=== PATIENT | male | born 1935 | race Caucasian/White ===

== ENCOUNTER → 2016-03-20 | Outpatient (CLI) | payer OTHER | LOC: MMPC 11:11 | PROVIDERS: ATTEND Surgery | DX: Z86.010 Personal history of colon polyps (principal); Z83.71 Family history of colonic polyps | CPT/HCPCS: 99202; G0463 ==

== ENCOUNTER → 2016-04-24 | Outpatient (CLI) | payer OTHER ==
--- NOTE | 2016-04-24 15:52 | DI ---
AP PELVIS and RIGHT HIP, 04/24/2016 1:12 PM: Clinical History: Right hip pain. Previous Exam: None at this facility. There is no soft tissue abnormality. The bony structures of the pelvis are normal. 2 views of the rig ht hip show asphericity of the femoral head with a dysplastic "bump". The left femoral head shows the same pattern. There is narrowing of the superior and inferior portions of the right hip joint space. Bony densities are present just superior to the right and left greater trochanters. These bony densi ties may represent heterotopic bone formation in the area of the gluteus medius and gluteus minimus t endons secondary to prior trauma. Readin. 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 The same pattern in the femoral head is noted on the left side. 2. There are bony densities superior to each greater trochanter and these densities may be related t o previous trauma. 3. The AP pelvis view is unremarkable.
== END ==
LOC: MOB RAD 13:14
PROVIDERS: ATTEND Physician Assistant
DX: M25.551 Pain in right hip (principal); M16.11 Unilateral primary osteoarthritis, right hip
CPT/HCPCS: 73502

== ENCOUNTER → 2016-05-01 | Outpatient (CLI) | payer OTHER | LOC: MMPC 11:11 | PROVIDERS: ATTEND Surgery | DX: K43.2 Incisional hernia without obstruction or gangrene (principal) | CPT/HCPCS: 99212; G0463 ==

== ENCOUNTER → 2016-08-08 | Outpatient (CLI) | payer OTHER ==
--- NOTE | 2016-08-10 18:07 | DI ---
XR WRIST COMPLETE MIN 3VW,08/08/2016 12:34 PM: Clinical History: Right wrist pain Previous Exam: None at this facility. Findings: 3 views of the right wrist are obtained, and demonstrate anatomic alignment without fractures. Diffus e degenerative changes are noted. Peripheral vascular calcifications are seen. There is some fragmentation of the right ulnar styloid. Degenerative changes are noted involving the first carpometacarpal joint. There is no acute fracture identified. Impression: 1. Diffuse degenerative changes of the right wrist without acute fractures. If pain persists or worsens, recommend followup imaging in 7-10 days to document resolution..
== END ==
LOC: MOB RAD 12:36
PROVIDERS: ATTEND Physician Assistant
DX: M25.531 Pain in right wrist (principal); R20.0 Anesthesia of skin; M19.031 Primary osteoarthritis, right wrist
CPT/HCPCS: 73110; 99213; G0463; L3908

== ENCOUNTER → 2016-08-25 | Outpatient (CLI) | payer OTHER | LOC: MMPC 10:00 | PROVIDERS: ATTEND Orthopaedic Surgery | DX: G56.01 Carpal tunnel syndrome, right upper limb (principal) | CPT/HCPCS: 99214; G0463 ==

== ENCOUNTER 2016-12-25 15:14 | Inpatient (IN) ==
[2016-12-25] MEDS ORDERED: IPRATROPIUM/ALBUTEROL SULFATE 3 ML NEB NEB ONE (15:27)
[2016-12-25] MEDS ORDERED: KETOROLAC 15 MG/1 ML VIAL IVP ONE (15:27)
[2016-12-25] MEDS ORDERED: Sodium Chloride 0.9% 1,000 ML PRIMARY IV ONE (15:27)
--- NOTE | 2016-12-25 15:30 | PDOC ---
Altered Mental Status HPI - General Chief Complaint: Altered Mental Status Stated Complaint: ams Date Seen by Provider: 12/25/16 Time Seen by Provider: 15:29 Source: POSITIVE: Patient Exam Limitations: POSITIVE: No limitations Nurse's Notes Reviewed & Considered: Yes - History of Present Illness Initial Comments: This is a pleasant 81-year-old male with altered mental status. Patient fell approximately a week ago resulting in rib fractures left ribs numbers 4 through 10. His fall occurred while working F home. Since that time he's had multiple other falls in now is confused, believing he is in the [facility], and is talking to nonexistent dog. Family states he's had no fevers, normal urine output, he has been coughing up phlegm. Review of systems per patient is unavailable because of his altered mental status. Timing: REPORTS: Unknown Duration: Unknown Severity: Severe Quality: DENIES: Aching, Burning, Cramping, Dullness, Fullness, "Pain", Sharpness, Stabbing, Throbbing, Tenderness, Itching, Pressure, Other Character of AMS: REPORTS: Disoriented Context: REPORTS: Trauma New Medications (if yes, list): No Patient Normals: REPORTS: Confused, Disoriented to Time, Disoriented to Place, Walks Without Assist Associated Symptoms: REPORTS: Multiple Falls, Dizziness Similar Symptoms Previously: No Recent Care Received: REPORTS: Recently Seen, Treated by MD Any Prior Injuries Related to Current Complaint?: No - Patient Home Medications Home Medications: Home Medications Aspirin 1 tab PO DAILY tab 11/08/15 Potassium 1 tab PO QD tab 11/08/15 Sitagliptin Phosphate [Januvia] 1 tab PO DAILY #90 tab 09/12/16 doxycycline hyclate 50 mg capsule 50 mg PO BID #60 cap 11/13/16 lisinopril 10 mg tablet 10 mg PO QDAY #90 tab 11/13/16 pravastatin 40 mg tablet 40 mg PO DAILY #90 tab 11/13/16 tamsulosin 0.4 mg capsule 0.4 mg PO DAILY #90 tab-cap 11/13/16 glucosamine [id number] yesica 1,500 mg-400 unit-100 mg tablet 1 tab PO QDAY tab 12/04/16 magnesium 200 mg tablet 200 mg PO QD tab 12/04/16 oxybutynin chloride ER 5 mg tablet,extended release 24 hr 5 mg PO QDAY #30 tab 12/04/16 polyethylene glycol 3350 17 gram/dose oral powder 17 g PO QDAY #765 g 12/04/16 levothyroxine 88 mcg tablet 88 mcg PO DAILY #90 tab 12/11/16 HYDROcodone/APAP 10/325 Tab [[place] 10/325 Tab] 1 tab PO Q6H PRN #20 tab - Patient Allergies Allergies/Adverse Reactions: Allergies 3 Allergy/AdvReac Type Severity Reaction Status Date / Time codeine Allergy Severe SYNCOPAL Verified 12/25/16 21:18 EPISODE Past Medical History - heen HEENT History: Denies History Cardiovascular History: Hypertension, Hyperlipidemia Respiratory History: Denies History Gastrointestinal History: Denies History Genitourinary History: Other (please comment) Additional Genitourinary History: BPH Endocrine History: Hypothyroidism Musculoskeletal History: Back Pain, Joint Pain Neurological History: Denies History Blood Disorders: Denies History Psychiatric History: Denies History History of Sexually Transmitted Diseases: No Cancer History: Denies History History of MDRO: No History of Other Communicable Diseases: No Alcohol Use: Rarely In the Past 12 Months, Have Used or Abuse Any Substance: None Previous Surgical History: No Type / Date of Surgery: INGUINAL HERNIA REPAIR, APPENDECTOMY Anesthesia Reactions: No Malignant Hyperthermia: No Significant Family History: No pertinent family hx ROS - Limitations ROS Limitations: Mental Impairment (No further review of systems unavailable because of this patient's altered mental status.) Altered Mental Physical Exam - General Appearance General Appearance: POSITIVE: Alert, Cooperative, No Acute Distress, No Evidence of Trauma - HEENT HEENT: POSITIVE: Head Inspection Nml, Eyes Inspection Nml, Ears Inspection Nml, Nose Inspection Nml, Oral/Dental Inspect. Nml, Pharynx Inspect. Nml, PERRL, EOMI - Pupil Size Pupil Size: 4 mm: Bilateral - Neuro/Psych Neurological: POSITIVE: Confusion Cranial Nerves: POSITIVE: Normal As Tested, No Evidence of Acute CVA Cerebellar: POSITIVE: Normal As Tested Peripheral Exam: POSITIVE: No Motor Deficits, No Sensory Deficits, Reflexes Normal Reflexes: Patellar (R): 4+, Patellar (L): 4+, Radial (R): 4+, Radial (L): 4+ - Neck Neck: POSITIVE: Supple, Non Tender - Respiratory Respiratory: POSITIVE: No Respiratory Distress, Breath Sounds Normal - Cardiovascular CVS: POSITIVE: Regular Rate and Rhythm, Heart Sounds Normal - Abdomen Abdomen: Soft: (All Quadrants), Normal Bowel Sounds: (All Quadrants), Denies Tenderness: (All Quadrants), No Splenomegaly: (All Quadrants), No Hepatomegaly: (All Quadrants), No Guarding: (All Quadrants), No Rebound: (All Quadrants), No Palpable Pulse: (All Quadrants), No Palpabale Mass: (All Quadrants), No Distention: (All Quadrants), No Rigidity: (All Quadrants) - Skin Skin: POSITIVE: Normal for Race, No Rash, Warm, Dry - Extremities Extremity: Non-Tender: (All Extremities), Normal ROM: (All Extremities), Normal Inspection: (All Extremities), Pelvis Stable: (All Extremities) Altered Mental Status - Results Reviewed By Me Xrays/CTs/US Reviewed: Yes Discussed with Radiologist: Yes Lab Results Reviewed by Me: Yes CBC and BMP: 12/25/16 15:57 12/25/16 15:57 - Patient's Progress Pain Medication Addressed: POSITIVE: Yes Status: POSITIVE: Improved MDM / ED Course: Patient was evaluated, an IV started, blood drawn and sent to the lab for studies, radiographic examinations were obtained. Findings: CT scan of his head shows bland infarct in left frontal lobe. INR is normal. CBC is unremarkable, comprehensive metabolic panel is unremarkable. Urinalysis is pending. Assessment: CVA, bland infarct left frontal lobe. Plan: Admission plan for MRI tomorrow. Antibiotics Given: No - Consult Consult (If Yes, Name of Consulting MD & Time Called): Yes (Dr. Mathews: 18:51) Consulting MD will see pt:: POSITIVE: [facility] [place] Admit Counseled: POSITIVE: Patient, Family, RE: Lab Results, RE: Radiology Results, RE : DX - CAP/CVA/Syncope CAP: POSITIVE: Blood Cultures, Chest X-ray, Other (CT of the head) Patient Care Time - Estimated PCT Patient Care Time (In Minutes): 45 Vital Signs - Recent Vital Signs Vital Signs: Vital Signs (Last 8 hours) Temp Pulse Resp BP Pulse Ox 12/25/16 15:14 98.7 F 77 16 142/78 85 - VS Reviewed Vital Signs Reviewed: Yes Discharge Clinical Impression: Stroke Discharge Disposition: Admit to Inpatient Condition: Stable Date Decision to Admit to Inpatient: 12/25/16 Time Decision to Admit to Inpatient: 18:53
[2016-12-25 16:11] LABS: Hematocrit [HCT] 42.1 % (42.0-52.0); Hemoglobin [HGB] 13.5 g/dL (14.0-18.0); MEAN CORPUSCULAR HEMOGLOBIN 29.9 PG (27-31); MEAN CORPUSCULAR HGB CONC 32.1 g/dL (33-37); MEAN CORPUSCULAR VOLUME 93.1 FL (80-90); MEAN PLATELET VOLUME 10.4 FL (7.4-12.2); RED BLOOD COUNT 4.52 10^6/uL (4.70-6.10)
[2016-12-25 16:16] LABS: VENOUS PH 7.4 (7.32-7.42)
[2016-12-25 16:22] LABS: BLOOD UREA NITROGEN 24 mg/dL (7-22); BUN/CREATININE RATIO 21.81 (6-20); SERUM ALBUMIN 3.7 g/dL (3.5-4.8)
[2016-12-25 16:28] LABS: PLATELET MORPHOLOGY COMMENT NORMAL MORPHOLOGY (NORM); RBC MORPHOLOGY COMMENT NORMAL MORPHOLOGY (NORM); WBC MORPHOLOGY COMMENT NORMAL MORPHOLOGY (NORM)
[2016-12-25 16:29] LABS: BAND NEUTROPHILS % 0 % (0-10); BASOPHILS % (MANUAL) 1 % (0-1); EOSINOPHILS % (MANUAL) 0 % (0-8); MONOCYTES % (MANUAL) 8 % (0-12); NEUTROPHILS % (MANUAL) 73 % (50-80)
--- NOTE | 2016-12-25 18:05 | DI ---
CT HEAD SCAN WITHOUT IV CONTRAST, 12/25/2016 4:59 PM : Clinical History: Acute mental status change. Previous Exam: None at this facility. Scans are obtained from the foramen magnum to the vertex without IV contrast. None fourth ventricle The third and lateral ventricles are moderately dilated but are otherwise bjorn l. There is no evidence of an acute hemorrhagic infarct. There is a low-density lesion measuring abou t 20 mm in diameter in the left frontal lobe without evidence of mass effect. The gyral pattern in th is location is normal in this low density lesion most likely represents an acute or subacute bland in farct. There are multiple punctate periventricular white matter lucencies bilaterally that extend int o the watershed territory, consistent with small vessel ischemic disease. This amount of ischemic dis ease is appropriate for the patient's age. There is moderately severe cerebellar and severe cerebral atrophy. There are no extracerebral mantles or shift of the midline structures. Bone window evaluatio n is normal. The paranasal sinuses are normal. READIN. There is a 20 mm focus of low density located in the left frontal lobe without mass effect or manav dence of localized cortical atrophy. This low density lesion would be consistent with an acute or sub acute bland infarct. 2. Small vessel ischemic disease. 3. Moderately severe cerebellar and severe cerebral atrophy.
--- NOTE | 2016-12-25 18:10 | DI ---
PA /LATERAL CHEST X-RAY, 12/25/2016 3:27 PM : Clinical History: Shortness of breath. Cough. Broken ribs. Previous Exam: 12/20/2016. There are fractures of the left fourth through 10th ribs posterolaterally. Heart size is normal. Ther e is no pneumothorax but there is a new left pleural effusion with left lower lobe atelectasis. Media stinal structures are normal. There are no pulmonary nodules. Readin. Fractures of the left fourth through 10th ribs posterolaterally. There is no pneumothorax. 2. Interval development of a small left pleural effusion. There is chronic blunting of the right cos tophrenic angle.
[2016-12-25] MEDS ORDERED: CALCIUM CARBONATE 500 MG (TUMS) CHEWABLE TABLET PO PRN (20:46)
[2016-12-25] MEDS ORDERED: LIDOCAINE W/ SODIUM BICARB 0.5 ML SYR SUBD PRN (20:46)
[2016-12-25] MEDS ORDERED: ONDANSETRON 4 MG/2 ML VIAL IVP PRN (20:46)
[2016-12-25] MEDS ORDERED: DOCUSATE 100 MG CAPSULE PO PRN (20:46)
[2016-12-25] MEDS ORDERED: KETOROLAC 15 MG/1 ML VIAL IVP PRN (20:46)
[2016-12-25] MEDS ORDERED: ACETAMINOPHEN 325 MG TABLET PO PRN (20:46)
[2016-12-25] MEDS ORDERED: NORMAL SALINE 10 ML SYRINGE FLUSH IVP PRN (20:46)
--- NOTE | 2016-12-25 23:33 | PDOC ---
HPI - History of Present Illness Date and Time of Service: 12/25/2016, 2330 Chief Complaint: Altered mental status History of Present Illness: This very pleasant 81-year-old male who has BPH, recent rib fractures from a fall, mechanical in relation to taking care of his scalp, who comes in accompanied by his family with complaints of altered mental status. The history had to be obtained from the patient's [id number], son, and daughter. Apparently, the patient was very disoriented today, was having some garbled speech at times, but it's difficult to tell if he has lateralizing weakness as he's had long-standing right arm weakness in relation to her shoulder problems. The patient seemed to be able to eat okay and did not have any coughing or anything consistent with aspiration. No fevers, chills, nausea or vomiting. Apparently, when the patient had a fall on the fourth, he broke several ribs on the left side and there was concern that maybe the hydrocodone was causing pain. Workup tonight revealed a possible stroke although the age of the stroke is not known. This was on CT scan. It is also not known if he had a concussion, but apparently he laid on the ground for close to a few hours after the incident with his fall when he got knocked over and his ribs were fractured. He has been on hydrocodone, recently started on oxybutynin, and is also on a statin. The family states that he is not normally confused. The patient currently denies any pain. Chest x-ray workup did not reveal any pneumonia although he was requiring oxygen at around 2 L per nasal cannula. He did have what appeared to be a small left-sided pleural effusion. He has not had any confusion like this before. Outside of bringing him in today for evaluation I'm not aware of any interventions that were tried. Past Medical History Medical History: 1. BPH. 2. Hypercholesterolemia. 3. Hypertension. 4. Diabetes most 2. 5. Hypothyroidism. 6. History of colon polyps. 7. Shoulder problems, right side worse than left Surgical History: 1. History of appendectomy. 2. Hernia repair. 3. History of colonoscopy. Pertinent Family History: Significant for diabetes in siblings and parents. Past Social History: Smoked remotely over 40 years ago. Does not drink alcohol. [place] Has children that are described as healthy. Tobacco Use: Former Smoker In the Past 12 Months, Have Used or Abuse Any of the Following Substance: None Alcohol Use: None Medication / Allergies Home Medications: Home Medications Medication Instructions Recorded Confirmed Type Aspirin 1 tab PO DAILY tab 11/08/15 12/25/16 History Potassium 1 tab PO QD tab 11/08/15 12/25/16 History Sitagliptin Phosphate [Januvia] 1 tab PO DAILY #90 tab 09/12/16 12/25/16 Rx doxycycline hyclate 50 mg capsule 50 mg PO BID #60 cap 11/13/16 12/25/16 Rx lisinopril 10 mg tablet 10 mg PO QDAY #90 tab 11/13/16 12/25/16 Rx pravastatin 40 mg tablet 40 mg PO DAILY #90 tab 11/13/16 12/25/16 Rx tamsulosin 0.4 mg capsule 0.4 mg PO DAILY #90 tab-cap 11/13/16 12/25/16 Rx glucosamine [id number] 1 tab PO QDAY tab 12/04/16 12/25/16 History yesica 1,500 mg-400 unit-100 mg tablet magnesium 200 mg tablet 200 mg PO QD tab 12/04/16 12/25/16 History oxybutynin chloride ER 5 mg 5 mg PO QDAY #30 tab 12/04/16 12/25/16 Rx tablet,extended release 24 hr polyethylene glycol 3350 17 17 g PO QDAY #765 g 12/04/16 12/25/16 Rx gram/dose oral powder levothyroxine 88 mcg tablet 88 mcg PO DAILY #90 tab 12/11/16 12/25/16 Rx HYDROcodone/APAP 10/325 Tab 1 tab PO Q6H PRN #20 tab 12/20/16 12/25/16 Rx [[place] 10/325 Tab] Allergies/Adverse Reactions: Allergies 3 Allergy/AdvReac Type Severity Reaction Status Date / Time codeine Allergy Severe SYNCOPAL Verified 12/25/16 21:18 EPISODE Review of Systems - Review of Systems ROS Unobtainable: Due to Mental Status (I cannot obtain a review systems from this patient due to his altered mental status, confusion.) Exam - Vitals Vital Signs: Vital Signs Temperature 97.6 F Temperature Source Oral Pulse Rate [Pulse Oximeter 66 Right] Pulse Rate 67 Respiratory Rate 22 Blood Pressure [Left Arm] 152/70 Blood Pressure 142/78 Pulse Ox 94 Oxygen Flow Rate 2 Oxygen Delivery Method Nasal Cannula Height 6 ft Weight 168 lb 6 oz - General General Appearance: No Acute Distress, Cooperative (Patient followed basic commands. Was able to breathe deeply on command for example.) - Head Head Exam: Normal Inspection, Normocephalic, Atraumatic - Eye Eye Exam: POSITIVE: No Scleral Icterus - ENT ENT Exam: POSITIVE: Mucous Membranes Moist - Neck Neck Exam: No Tenderness, No Lymphadenopathy, No Thyromegaly, JVP is Raised - Respiratory Respiratory Exam: POSITIVE: Breathing Non Labored, Decreased Breath Sounds (The left base) - Cardiovascular Cardiovascular Exam: POSITIVE: RRR, No Murmur, No Clicks, No Gallops, No Rubs, JVD - GI/Abdominal GI/Abdominal Exam: POSITIVE: Normal Bowel Sounds, Non Tender, Non Distended, Soft - Rectal Rectal Exam: POSITIVE: Deferred - External Exam: POSITIVE: Deferred Exam: POSITIVE: Deferred - Extremities Extremities Exam: POSITIVE: No Clubbing Present, No Edema Present, No Cyanosis Present - Neurological Neurological Exam: POSITIVE: Alert, Speech Intact / Clear (At times, the patient had clear and intact speech. At other times it was more gibberish. He has decreased movement of his right upper extremity and weakness of the right upper extremity that the family states is baseline for him.), Altered (Somewhat confused.) - Psychiatric Psychiatric Exam: POSITIVE: Normal Affect, Normal Mood Results - Labs CBC and BMP: 12/25/16 15:57 12/25/16 15:57 Additional Lab Results: Laboratory Results 12/25/16 12/25/16 12/25/16 Range/Units 15:54 15:57 15:57 WBC 9.02 (4.8-10.8) 10^3/uL RBC 4.52 L (4.70-6.10) 10^6/uL Hgb 13.5 L (14.0-18.0) g/dL Hct 42.1 (42.0-52.0) % MCV 93.1 H (80-90) FL MCH 29.9 (27-31) PG MCHC 32.1 L (33-37) g/dL RDW Std Deviation 43.0 (39-50) fL RDW Coeff of Alicia 13.0 (11.5-14.5) % Plt Count 176 (140-350) 10*3/uL MPV 10.4 (7.4-12.2) FL Neutrophils % (Manual) 73 (50-80) % Band Neutrophils % 0 (0-10) % Lymphocytes % (Manual) 18 (10-50) % Monocytes % (Manual) 8 (0-12) % Eosinophils % (Manual) 0 (0-8) % Basophils % (Manual) 1 (0-1) % Metamyelocytes % Not Reportable Myelocytes % Not Reportable Promyelocytes % Not Reportable Blast Cells Not Reportable WBC Morphology Comment Normal morphology (NORM) Plt Morphology Comment Normal morphology (NORM) RBC Morph Comment Normal morphology (NORM) PT (9.7-11.4) secs INR (0.00-5.90) N/A VBG pH 7.40 (7.32-7.42) VBG pCO2 42 L (45-55) mmHg VBG HCO3 26 (22-26) mmol/L VBG Base Excess 1 (-2-2) MMOL/L Sodium 138 (135-145) meq/L Potassium 4.1 (3.8-5.2) meq/L Chloride 103 (98-112) meq/L Carbon Dioxide 28 (23-33) meq/L Anion Gap 7 (5-20) BUN 24 H (7-22) mg/dL Creatinine 1.1 (0.70-1.50) mg/dL BUN/Creatinine Ratio 21.81 H (6-20) Glucose 135 H (78-110) mg/dL Calculated Osmolality 291.0 (267-292) mOsm/kg Lactic Acid 0.8 (0.70-2.10) MMOL/L Calcium 9.4 (8.7-10.7) mg/dL Total Bilirubin 1.1 (0.3-1.2) mg/dL AST 24 (21-57) IU/L ALT 34 (21-72) IU/L Alkaline Phosphatase 66 (38-126) IU/L Total Protein 6.5 (6.1-8.0) g/dL Albumin 3.7 (3.5-4.8) g/dL Globulin 2.8 (2.50-4.10) g/dL Albumin/Globulin Ratio 1.30 (1.3-2.0) mg/g 12/25/16 Range/Units 17:15 WBC (4.8-10.8) 10^3/uL RBC (4.70-6.10) 10^6/uL Hgb (14.0-18.0) g/dL Hct (42.0-52.0) % MCV (80-90) FL MCH (27-31) PG MCHC (33-37) g/dL RDW Std Deviation (39-50) fL RDW Coeff of Alicia (11.5-14.5) % Plt Count (140-350) 10*3/uL MPV (7.4-12.2) FL Neutrophils % (Manual) (50-80) % Band Neutrophils % (0-10) % Lymphocytes % (Manual) (10-50) % Monocytes % (Manual) (0-12) % Eosinophils % (Manual) (0-8) % Basophils % (Manual) (0-1) % Metamyelocytes % Myelocytes % Promyelocytes % Blast Cells WBC Morphology Comment (NORM) Plt Morphology Comment (NORM) RBC Morph Comment (NORM) PT 10.5 (9.7-11.4) secs INR 0.99 (0.00-5.90) N/A VBG pH (7.32-7.42) VBG pCO2 (45-55) mmHg VBG HCO3 (22-26) mmol/L VBG Base Excess (-2-2) MMOL/L Sodium (135-145) meq/L Potassium (3.8-5.2) meq/L Chloride (98-112) meq/L Carbon Dioxide (23-33) meq/L Anion Gap (5-20) BUN (7-22) mg/dL Creatinine (0.70-1.50) mg/dL BUN/Creatinine Ratio (6-20) Glucose (78-110) mg/dL Calculated Osmolality (267-292) mOsm/kg Lactic Acid (0.70-2.10) MMOL/L Calcium (8.7-10.7) mg/dL Total Bilirubin (0.3-1.2) mg/dL AST (21-57) IU/L ALT (21-72) IU/L Alkaline Phosphatase (38-126) IU/L Total Protein (6.1-8.0) g/dL Albumin (3.5-4.8) g/dL Globulin (2.50-4.10) g/dL Albumin/Globulin Ratio (1.3-2.0) mg/g - EKG Data -: EKG Interpreted by Me (I have ordered an EKG.) - Imaging Status: Image Reviewed by Me (Head CT scan appears negative for bleed. The radiologist felt it may show a punctate lesion that might be consistent with stroke. Chest x-ray appears negative for pneumonia, but there is a small pleural effusion on the left and multiple rib fractures on the left.) Assessment and Plan - Patient Problems (1) Altered mental status Current Visit: Yes Status: Acute Code(s): R41.82 - Altered mental status, unspecified Qualifiers: Altered mental status type: disorientation Qualified Code(s): R41.0 - Disorientation, unspecified (2) Rib fractures Current Visit: Yes Status: Acute Code(s): S22.39XA - Fracture of one rib, unspecified side, initial encounter for closed fracture Qualifiers: Encounter type: subsequent encounter Rib fracture type: multiple ribs Fracture type: closed Laterality: left Fracture healing: with routine healing Qualified Code(s): S22.42XD - Multiple fractures of ribs, left side, subsequent encounter for fracture with routine healing (3) Stroke Current Visit: Yes Status: Suspected Code(s): I63.9 - Cerebral infarction, unspecified Qualifiers: CVA mechanism: thrombosis Precerebral and cerebral artery: unspecified cerebral artery Qualified Code(s): I63.30 - Cerebral infarction due to thrombosis of unspecified cerebral artery (4) Benign prostatic hyperplasia Current Visit: Yes Status: Chronic Qualifiers: Lower urinary tract symptom presence: symptoms present Lower urinary tract symptom detail: unspecified Qualified Code(s): N40.1 - Benign prostatic hyperplasia with lower urinary tract symptoms; N40.1 - Benign prostatic hyperplasia with lower urinary tract symptoms (5) Type 2 diabetes mellitus Current Visit: Yes Status: Chronic Qualifiers: Diabetes mellitus complication status: without complication Diabetes mellitus senior care insulin use: without superintendent [employer] use Qualified Code(s): E11.9 - Type 2 diabetes mellitus without complications (6) Hypothyroidism (acquired) Current Visit: Yes Status: Chronic Onset Date: 06/28/12 Code(s): E03.9 - Hypothyroidism, unspecified (7) Hyperlipidemia Current Visit: Yes Status: Chronic Onset Date: 06/28/12 Code(s): E78.5 - Hyperlipidemia, unspecified Qualifiers: Hyperlipidemia type: unspecified Qualified Code(s): E78.5 - Hyperlipidemia , unspecified (8) Benign hypertension Current Visit: Yes Status: Chronic Onset Date: 06/28/12 Code(s): I10 - Essential (primary) hypertension (9) Postconcussive syndrome Current Visit: Yes Status: Suspected Code(s): F07.81 - Postconcussional syndrome - Assessment / Plan Additional Assessment/Plan Details: Admit the patient. We'll get PT and OT involved with recent falls at home. Check MRI scan of brain along with MRA of head and neck to evaluate vasculature to confirm whether or not there was an acute stroke. Permissive hypertension. Stop hydrocodone. CODE STATUS is currently confirmed as full code although I recommended consideration for the family discussing this at length with the patient due to the increasing risks of CPR versus benefits at this age. Stop oxybutynin and stop statin given the confusion for the patient. Tylenol and anti-inflammatories for the pain and incentive spirometry. If the MRI scan and MRA are nonrevealing of potential stroke syndrome, then I think this is more likely a post concussive syndrome and hydrocodone causing the majority of problems, and we will adjust therapy accordingly. I discussed the above plan with the patient, and the family, and the patient's son, [id number] and daughter agreed with the plan. The patient himself is too confused.
[2016-12-25] MEDS ORDERED: CYANOCOBALAMIN 1000 MCG/1 ML VIAL IM ONE (23:54)
[2016-12-26] MEDS ORDERED: LABETALOL 20 MG/4 ML (5 MG/1 ML) SYRINGE IVP PRN (00:29)
[2016-12-26] MEDS: LEVOTHYROXINE 88 MCG TABLET PO SCH ×2 (04:26→04:43)
[2016-12-26] MEDS ORDERED: LISINOPRIL 10 MG TABLET PO SCH (09:00)
[2016-12-26] MEDS: ENOXAPARIN SODIUM 40 MG/0.4 ML SYRINGE SUBCUT SCH (09:01)
--- NOTE | 2016-12-26 09:03 | DI ---
MRI BRAIN SCAN WITHOUT IV CONTRAST, 12/26/2016 7:00 AM: Clinical History: Stroke. Previous Exam: None at this facility. Sequences: Sagittal T1; Axial FRANCESCO T2 and FLAIR. Axial diffusion weighted images with ADC mapping were also performed. The fourth ventricle is of normal size, shape, position and contour. The third and lateral ventricles are moderately dilated but are otherwise normal. There are multiple punctate periventricular white m atter hyperintensities bilaterally that extend into the watershed territory, consistent with small ve ssel ischemic disease. This amount of ischemic disease is moderately advanced for the patient's age. In the left frontal lobe, there is a focus of hyperintensity measuring about 20 mm in diameter that i s not associated with any mass effect or more prominent focal atrophy. Diffusion-weighted imaging wit h ADC mapping shows no evidence of an acute infarction. This hyperintense area presumably represents a focal area of pronounced ischemia. The lack of mass effect would indicate a white matter process garcia ch as progressive multifocal leukoencephalopathy is unlikely. There is moderately severe cerebellar a nd very severe cerebral atrophy. There are no extracerebral mantels or shift of the midline structure s. The paranasal sinuses are normal. Readin. There is a 20 mm focus of hyperintensity located in the left frontal lobe that exhibits no mass e ffect or evidence of increased focal atrophic change involving the gyri. There is evidence of moderat bassam advanced small vessel ischemic disease in this larger focus may be of the same process. There is no evidence of an acute hemorrhagic or bland infarct. 2. Moderately severe cerebellar atrophy and very severe cerebral atrophy.
--- NOTE | 2016-12-26 09:19 | DI ---
MR ANGIOGRAM OF THE NECK, 12/26/2016 7:00 AM: Clinical History: Stroke. Previous Exam: None at this facility. Axial 2D TOF and coronal T-SLIP images are reconstructed into a 3D MIP format. Scans are performed from below the sternal notch to of the neck to the base of the skull without cont rast. The origins of both common carotid arteries partially obscured by artifacts but the remainder of thes e vessels are normal from immediately superior to their origins to the bifurcations. The internal and external carotid arteries in the neck region are normal. The internal carotid arteries from bifurcat ions to the base of the skull are also normal. Both vertebral arteries are visualized and are normal. The right vertebral artery is the dominant vessel. READING: Normal MR angiogram of the carotid and vertebral arteries of the neck.
--- NOTE | 2016-12-26 09:34 | DI ---
MR ANGIOGRAPHY OF THE [place], 12/26/2016 7:00 AM: Clinical History: Stroke. Previous Exam: None at this facility. High resolution axial 3D thin slice time of flight scans are performed for the arterial phase. 3D MIP S reconstructions are obtained. The right vertebral artery is dominant. There is no basilar tip aneurysm or aneurysm arising from the vertebral-basilar branches. There are no identifiable posterior communicating arteries. The anterior communicating artery is markedly atretic but normal. The A1and A2, and the M1 through M3 branches bi laterally are normal. There is insufficient detail to visualize the arteries in the area of the left frontal lobe where there is a large hyperintense white matter focus. Reading: Normal MR angiogram scan of the [place].
[2016-12-26] MEDS: POLYETHYLENE GLYCOL 3350 17 GM POWDER PO SCH (10:25)
[2016-12-26] MEDS: ASPIRIN 325 MG TABLET PO SCH (10:26)
[2016-12-26] MEDS: TAMSULOSIN 0.4 MG CAPSULE PO SCH (10:26)
--- NOTE | 2016-12-26 11:35 | EKG ---
[address] [address] Measurements Intervals [place] Rate: 73 P: 55 TX: 155 QRS: 37 QRSD: 87 T: 67 QT: 384 QTc: 409 Interpretive Statements SINUS RHYTHM WITH OCCASIONAL SUPRAVENTRICULAR PREMATURE COMPLEXES POSSIBLE RIGHT VENTRICULAR CONDUCTION DELAY [RSR (QR) IN V1/V2] No previous ECG available for comparison Electronically Signed On 12-29-16 08:39:18 MST by Derek Arguello MD [email or web address]
[2016-12-26] MEDS ORDERED: MAGNESIUM OXIDE 400 MG TABLET PO ONE ×2 (12:39→13:00)
--- NOTE | 2016-12-26 18:09 | PDOC(PROG) ---
Date and Time of Service: 12/26/2016, 1804 Interval History: patient seen and evaluated earlier. No chest pain, SOB, or N/V. Seen with family. Still had some confusion regarding location, but mental status much more clear per family Objective : Data - Labs CBC and BMP: 12/25/16 15:57 12/25/16 15:57 Additional Lab Results: Laboratory Results 12/25/16 12/25/16 12/25/16 Range/Units 15:54 15:57 15:57 WBC 9.02 (4.8-10.8) 10^3/uL RBC 4.52 L (4.70-6.10) 10^6/uL Hgb 13.5 L (14.0-18.0) g/dL Hct 42.1 (42.0-52.0) % MCV 93.1 H (80-90) FL MCH 29.9 (27-31) PG MCHC 32.1 L (33-37) g/dL RDW Std Deviation 43.0 (39-50) fL RDW Coeff of Alicia 13.0 (11.5-14.5) % Plt Count 176 (140-350) 10*3/uL MPV 10.4 (7.4-12.2) FL Neutrophils % (Manual) 73 (50-80) % Band Neutrophils % 0 (0-10) % Lymphocytes % (Manual) 18 (10-50) % Monocytes % (Manual) 8 (0-12) % Eosinophils % (Manual) 0 (0-8) % Basophils % (Manual) 1 (0-1) % Metamyelocytes % Not Reportable Myelocytes % Not Reportable Promyelocytes % Not Reportable Blast Cells Not Reportable WBC Morphology Comment Normal morphology (NORM) Plt Morphology Comment Normal morphology (NORM) RBC Morph Comment Normal morphology (NORM) PT (9.7-11.4) secs INR (0.00-5.90) N/A VBG pH 7.40 (7.32-7.42) VBG pCO2 42 L (45-55) mmHg VBG HCO3 26 (22-26) mmol/L VBG Base Excess 1 (-2-2) MMOL/L Sodium 138 (135-145) meq/L Potassium 4.1 (3.8-5.2) meq/L Chloride 103 (98-112) meq/L Carbon Dioxide 28 (23-33) meq/L Anion Gap 7 (5-20) BUN 24 H (7-22) mg/dL Creatinine 1.1 (0.70-1.50) mg/dL BUN/Creatinine Ratio 21.81 H (6-20) Glucose 135 H (78-110) mg/dL Calculated Osmolality 291.0 (267-292) mOsm/kg Lactic Acid 0.8 (0.70-2.10) MMOL/L Calcium 9.4 (8.7-10.7) mg/dL Total Bilirubin 1.1 (0.3-1.2) mg/dL AST 24 (21-57) IU/L ALT 34 (21-72) IU/L Alkaline Phosphatase 66 (38-126) IU/L Total Protein 6.5 (6.1-8.0) g/dL Albumin 3.7 (3.5-4.8) g/dL Globulin 2.8 (2.50-4.10) g/dL Albumin/Globulin Ratio 1.30 (1.3-2.0) mg/g 12/25/16 Range/Units 17:15 WBC (4.8-10.8) 10^3/uL RBC (4.70-6.10) 10^6/uL Hgb (14.0-18.0) g/dL Hct (42.0-52.0) % MCV (80-90) FL MCH (27-31) PG MCHC (33-37) g/dL RDW Std Deviation (39-50) fL RDW Coeff of Alicia (11.5-14.5) % Plt Count (140-350) 10*3/uL MPV (7.4-12.2) FL Neutrophils % (Manual) (50-80) % Band Neutrophils % (0-10) % Lymphocytes % (Manual) (10-50) % Monocytes % (Manual) (0-12) % Eosinophils % (Manual) (0-8) % Basophils % (Manual) (0-1) % Metamyelocytes % Myelocytes % Promyelocytes % Blast Cells WBC Morphology Comment (NORM) Plt Morphology Comment (NORM) RBC Morph Comment (NORM) PT 10.5 (9.7-11.4) secs INR 0.99 (0.00-5.90) N/A VBG pH (7.32-7.42) VBG pCO2 (45-55) mmHg VBG HCO3 (22-26) mmol/L VBG Base Excess (-2-2) MMOL/L Sodium (135-145) meq/L Potassium (3.8-5.2) meq/L Chloride (98-112) meq/L Carbon Dioxide (23-33) meq/L Anion Gap (5-20) BUN (7-22) mg/dL Creatinine (0.70-1.50) mg/dL BUN/Creatinine Ratio (6-20) Glucose (78-110) mg/dL Calculated Osmolality (267-292) mOsm/kg Lactic Acid (0.70-2.10) MMOL/L Calcium (8.7-10.7) mg/dL Total Bilirubin (0.3-1.2) mg/dL AST (21-57) IU/L ALT (21-72) IU/L Alkaline Phosphatase (38-126) IU/L Total Protein (6.1-8.0) g/dL Albumin (3.5-4.8) g/dL Globulin (2.50-4.10) g/dL Albumin/Globulin Ratio (1.3-2.0) mg/g Objective : Exam - General General Appearance: No Acute Distress, Cooperative Additional General Exam Details: Vital Signs (24 hrs) Temp Pulse Pulse Resp BP BP Pulse Ox 12/26/16 16:31 98.7 F 60 18 155/71 96 12/26/16 15:00 56 L 12/26/16 12:41 97.4 F 62 20 139/66 96 12/26/16 11:00 66 12/26/16 08:59 97.8 F 54 L 20 146/68 96 12/26/16 07:00 56 L 12/26/16 04:51 92 12/26/16 04:26 98.2 F 56 L 18 146/69 98 12/26/16 03:00 53 L 12/26/16 00:25 98.3 F 66 18 175/76 91 12/25/16 21:00 97.6 F 66 22 152/70 94 12/25/16 20:48 98.7 F 77 16 142/78 85 12/25/16 20:40 98.7 F 67 18 142/78 96 - Head Head Exam: Normal Inspection, Normocephalic, Atraumatic - Eye Eye Exam: No Scleral Icterus - Respiratory Respiratory Exam: Breathing Non Labored, Decreased Breath Sounds - Cardiovascular Cardiovascular Exam: RRR, No Murmur, No Clicks, No Gallops, No Rubs, No JVD - GI/Abdominal GI/Abdominal Exam: Normal Bowel Sounds, Non Tender, Non Distended, Soft - Extremities Extremities Exam: No Clubbing Present, No Edema Present, No Cyanosis Present - Neurological Neurological Exam: Alert, No Facial Droop, Speech Intact / Clear, Moves All Extremities Equally Assessment and Plan - Patient Problems (1) Postconcussive syndrome Current Visit: Yes Status: Suspected Code(s): F07.81 - Postconcussional syndrome (2) Altered mental status Current Visit: Yes Status: Resolved Code(s): R41.82 - Altered mental status , unspecified Qualifiers: Altered mental status type: disorientation Qualified Code(s): R41.0 - Disorientation, unspecified (3) Rib fractures Current Visit: Yes Status: Acute Code(s): S22.39XA - Fracture of one rib, unspecified side, initial encounter for closed fracture Qualifiers: Encounter type: subsequent encounter Rib fracture type: multiple ribs Fracture type: closed Laterality: left Fracture healing: with routine healing Qualified Code(s): S22.42XD - Multiple fractures of ribs, left side, subsequent encounter for fracture with routine healing (4) Benign prostatic hyperplasia Current Visit: Yes Status: Chronic Qualifiers: Lower urinary tract symptom presence: symptoms present Lower urinary tract symptom detail: unspecified Qualified Code(s): N40.1 - Benign prostatic hyperplasia with lower urinary tract symptoms; N40.1 - Benign prostatic hyperplasia with lower urinary tract symptoms (5) Type 2 diabetes mellitus Current Visit: Yes Status: Chronic Qualifiers: Diabetes mellitus complication status: without complication Diabetes mellitus fpc insulin use: without fpc use Qualified Code(s): E11.9 - Type 2 diabetes mellitus without complications (6) Hypothyroidism (acquired) Current Visit: Yes Status: Chronic Onset Date: 06/28/12 Code(s): E03.9 - Hypothyroidism, unspecified (7) Hyperlipidemia Current Visit: Yes Status: Chronic Onset Date: 06/28/12 Code(s): E78.5 - Hyperlipidemia, unspecified Qualifiers: Hyperlipidemia type: unspecified Qualified Code(s): E78.5 - Hyperlipidemia , unspecified (8) Benign hypertension Current Visit: Yes Status: Chronic Onset Date: 06/28/12 Code(s): I10 - Essential (primary) hypertension - Assessment / Plan Additional Assessment/Plan Details: I spoke with the family at length. I think this is a combination of a post concussive syndrome after viewing and discussing MRI scans and MRA results with radiology. No evidence of acute stroke. The hydrocodone probably made things worse. The patient states his rib fracture pain is better. stop opiates continue PT and OT stop statin and oxybutynin get follow up arranged with primary physician if all goes well, hopeful for discharge tomorrow if still confused or altered in 6 weeks, may benefit from neuropsychiatric testing. family agreed with plan and patient agreed with the plan
[2016-12-27] MEDS: LEVOTHYROXINE 88 MCG TABLET PO SCH (04:48)
[2016-12-27] MEDS ORDERED: MAGNESIUM OXIDE 400 MG TABLET PO SCH (07:00)
[2016-12-27] MEDS: ENOXAPARIN SODIUM 40 MG/0.4 ML SYRINGE SUBCUT SCH (09:52)
[2016-12-27] MEDS: ASPIRIN 325 MG TABLET PO SCH (09:52)
[2016-12-27] MEDS: TAMSULOSIN 0.4 MG CAPSULE PO SCH (09:52)
[2016-12-27] MEDS: POLYETHYLENE GLYCOL 3350 17 GM POWDER PO SCH (09:52)
[2016-12-27 12:43] VITALS: BP 137/65; RESP 20; TEMP 97.2; O2SAT 94
--- NOTE | 2016-12-27 15:33 | DCSUMMARY ---
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 He was down on the ground for about 3 hours, consistent with a concussion. He did come to the emergency room and was placed on hydrocodone and sent home. He came in on this hospital stay with altered mental status, confusion, and disorientation. We did workup for potential stroke and found that he had an ischemic finding in the brain without evidence of stroke. It could be some blood vessel disease/damage over time. I discussed those films with the radiologist. I also discussed them with the family. Holding off on the hydrocodone, stopping oxybutynin and statin, the patient significantly improved. At this time I will stop the oxybutynin permanently and I recommended that he not go on hydrocodone. He states his pain from his rib fractures as action quite manageable and Tylenol and anti-inflammatories seem to be controlling the discomfort without issues. Other medical problems remain stable through the hospital stay. Given these findings, and significant improvements in mental status, improvement with physical therapy during the hospital stay, the patient and his family are in agreement that he is ready to go home. The patient does not complain of any chest pain, shortness breath or nausea or vomiting. Assessment and Plan: 1. As per discharge assessments noted 2. Disposition: Patient is discharged home. 3. Condition on discharge, stable and improved. 4. Diet: regular diet 5. Activities: resume normal activities 6. Follow-Up: 1. Dr. Madrigal as scheduled. 2. 7. Medications at the Time of Discharge: Home Medications Medication Instructions Recorded Confirmed Type Aspirin 1 tab PO DAILY tab 11/08/15 12/25/16 History Potassium 1 tab PO QD tab 11/08/15 12/25/16 History Sitagliptin Phosphate [Januvia] 1 tab PO DAILY #90 tab 09/12/16 12/25/16 Rx lisinopril 10 mg tablet 10 mg PO QDAY #90 tab 11/13/16 12/25/16 Rx pravastatin 40 mg tablet 40 mg PO DAILY #90 tab 11/13/16 12/25/16 Rx tamsulosin 0.4 mg capsule 0.4 mg PO DAILY #90 tab-cap 11/13/16 12/25/16 Rx glucosamine [id number] 1 tab PO QDAY tab 12/04/16 12/25/16 History yesica 1,500 mg-400 unit-100 mg tablet magnesium 200 mg tablet 200 mg PO QD tab 12/04/16 12/25/16 History polyethylene glycol 3350 17 17 g PO QDAY #765 g 12/04/16 12/25/16 Rx gram/dose oral powder levothyroxine 88 mcg tablet 88 mcg PO DAILY #90 tab 12/11/16 12/25/16 Rx 8. Time, care, counseling and coordination of care for this discharge is less than 30 minutes. Exam - Vitals Vital Signs: Vital Signs Temperature 97.2 F Temperature Source Temporal Artery Scan Pulse Rate [Pulse Oximeter 70 Right] Pulse Rate 75 Respiratory Rate 20 Blood Pressure [Left Arm] 137/65 Blood Pressure 142/78 Pulse Ox 94 Oxygen Flow Rate 1 Oxygen Delivery Method Room Air Height 6 ft Weight 168 lb 6.4 oz - General General Appearance: No Acute Distress, Cooperative - Eye Eye Exam: POSITIVE: No Scleral Icterus - ENT ENT Exam: POSITIVE: Mucous Membranes Moist - Respiratory Respiratory Exam: POSITIVE: Clear to Auscultation - Bilaterally, Breathing Non Labored - Cardiovascular Cardiovascular Exam: POSITIVE: RRR, No Murmur, No Clicks, No Gallops, No Rubs, No JVD - GI/Abdominal GI/Abdominal Exam: POSITIVE: Normal Bowel Sounds, Non Tender, Non Distended, Soft - Extremities Extremities Exam: POSITIVE: No Clubbing Present, No Edema Present, No Cyanosis Present - Neurological Neurological Exam: POSITIVE: Alert, Oriented x 3, No Facial Droop, Speech Intact / Clear Additional Neurological Exam Details: Chronic 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 - Psychiatric Psychiatric Exam: POSITIVE: Normal Affect, Normal Mood Data Perinent Studies: Laboratory Results 12/25/16 12/25/16 12/25/16 Range/Units 15:54 15:57 15:57 WBC 9.02 (4.8-10.8) 10^3/uL RBC 4.52 L (4.70-6.10) 10^6/uL Hgb 13.5 L (14.0-18.0) g/dL Hct 42.1 (42.0-52.0) % MCV 93.1 H (80-90) FL MCH 29.9 (27-31) PG MCHC 32.1 L (33-37) g/dL RDW Std Deviation 43.0 (39-50) fL RDW Coeff of Alicia 13.0 (11.5-14.5) % Plt Count 176 (140-350) 10*3/uL MPV 10.4 (7.4-12.2) FL Neutrophils % (Manual) 73 (50-80) % Band Neutrophils % 0 (0-10) % Lymphocytes % (Manual) 18 (10-50) % Monocytes % (Manual) 8 (0-12) % Eosinophils % (Manual) 0 (0-8) % Basophils % (Manual) 1 (0-1) % Metamyelocytes % Not Reportable Myelocytes % Not Reportable Promyelocytes % Not Reportable Blast Cells Not Reportable WBC Morphology Comment Normal morphology (NORM) Plt Morphology Comment Normal morphology (NORM) RBC Morph Comment Normal morphology (NORM) PT (9.7-11.4) secs INR (0.00-5.90) N/A VBG pH 7.40 (7.32-7.42) VBG pCO2 42 L (45-55) mmHg VBG HCO3 26 (22-26) mmol/L VBG Base Excess 1 (-2-2) MMOL/L Sodium 138 (135-145) meq/L Potassium 4.1 (3.8-5.2) meq/L Chloride 103 (98-112) meq/L Carbon Dioxide 28 (23-33) meq/L Anion Gap 7 (5-20) BUN 24 H (7-22) mg/dL Creatinine 1.1 (0.70-1.50) mg/dL BUN/Creatinine Ratio 21.81 H (6-20) Glucose 135 H (78-110) mg/dL Calculated Osmolality 291.0 (267-292) mOsm/kg Lactic Acid 0.8 (0.70-2.10) MMOL/L Calcium 9.4 (8.7-10.7) mg/dL Total Bilirubin 1.1 (0.3-1.2) mg/dL AST 24 (21-57) IU/L ALT 34 (21-72) IU/L Alkaline Phosphatase 66 (38-126) IU/L Total Protein 6.5 (6.1-8.0) g/dL Albumin 3.7 (3.5-4.8) g/dL Globulin 2.8 (2.50-4.10) g/dL Albumin/Globulin Ratio 1.30 (1.3-2.0) mg/g 12/25/16 Range/Units 17:15 WBC (4.8-10.8) 10^3/uL RBC (4.70-6.10) 10^6/uL Hgb (14.0-18.0) g/dL Hct (42.0-52.0) % MCV (80-90) FL MCH (27-31) PG MCHC (33-37) g/dL RDW Std Deviation (39-50) fL RDW Coeff of Alicia (11.5-14.5) % Plt Count (140-350) 10*3/uL MPV (7.4-12.2) FL Neutrophils % (Manual) (50-80) % Band Neutrophils % (0-10) % Lymphocytes % (Manual) (10-50) % Monocytes % (Manual) (0-12) % Eosinophils % (Manual) (0-8) % Basophils % (Manual) (0-1) % Metamyelocytes % Myelocytes % Promyelocytes % Blast Cells WBC Morphology Comment (NORM) Plt Morphology Comment (NORM) RBC Morph Comment (NORM) PT 10.5 (9.7-11.4) secs INR 0.99 (0.00-5.90) N/A VBG pH (7.32-7.42) VBG pCO2 (45-55) mmHg VBG HCO3 (22-26) mmol/L VBG Base Excess (-2-2) MMOL/L Sodium (135-145) meq/L Potassium (3.8-5.2) meq/L Chloride (98-112) meq/L Carbon Dioxide (23-33) meq/L Anion Gap (5-20) BUN (7-22) mg/dL Creatinine (0.70-1.50) mg/dL BUN/Creatinine Ratio (6-20) Glucose (78-110) mg/dL Calculated Osmolality (267-292) mOsm/kg Lactic Acid (0.70-2.10) MMOL/L Calcium (8.7-10.7) mg/dL Total Bilirubin (0.3-1.2) mg/dL AST (21-57) IU/L ALT (21-72) IU/L Alkaline Phosphatase (38-126) IU/L Total Protein (6.1-8.0) g/dL Albumin (3.5-4.8) g/dL Globulin (2.50-4.10) g/dL Albumin/Globulin Ratio (1.3-2.0) mg/g [address] [place] [address] PH: DD: [phone] FAX: [phone] ~DIAGNOSTIC IMAGING REPORT~ Patient: Balaji Mcclure : 1935 Sex: M Age: 81 Exam Name: MRI MRA Neck WO Contrast Exam Date: 12/26/16 Report # : [id number] CPT Code: 58190 EMR/MR #: [id number] Ordering: JEAN PAUL VALDEZ Admiting: JEAN PAUL VALDEZ DO Primary: Mumtaz Madrigal MD Attending: JEAN PAUL VALDEZ DO Signed MR ANGIOGRAM OF THE NECK, 12/26/2016 7:00 AM: Clinical History: Stroke. Previous Exam: None at this facility. Axial 2D TOF and coronal T-SLIP images are reconstructed into a 3D MIP format. Scans are performed from below the sternal notch to of the neck to the base of the skull without contrast. The origins of both common carotid arteries partially obscured by artifacts but the remainder of these vessels are normal from immediately superior to their origins to the bifurcations. The internal and external carotid arteries in the neck region are normal. The internal carotid arteries from bifurcations to the base of the skull are also normal. Both vertebral arteries are visualized and are normal. The right vertebral artery is the dominant vessel. READING: Normal MR angiogram of the carotid and vertebral arteries of the neck. Dictated By: 12/26/16911 SEBAS ANG MD. Signed By: 12/26/16 0919 SEBAS ANG MD. [address] [facility] [place] [address] PH: DD: [phone] FAX: [phone] ~DIAGNOSTIC IMAGING REPORT~ Patient: Balaji Mcclure : 1935 Sex: M Age: 81 Exam Name: MRI MRA Head WO Contrast Exam Date: 12/26/16 Report # : [id number] CPT Code: 43782 EMR/MR #: [id number] Ordering: JEAN PAUL VALDEZ Admiting: JEAN PAUL VALDEZ DO Primary: Mumtaz Madrigal MD Attending: JEAN PAUL VALDEZ DO Signed MR ANGIOGRAPHY OF THE [place], 12/26/2016 7:00 AM: Clinical History: Stroke. Previous Exam: None at this facility. High resolution axial 3D thin slice time of flight scans are performed for the arterial phase. 3D MIPS reconstructions are obtained. The right vertebral artery is dominant. There is no basilar tip aneurysm or aneurysm arising from the vertebral-basilar branches. There are no identifiable posterior communicating arteries. The anterior communicating artery is markedly atretic but normal. The A1and A2, and the M1 through M3 branches bilaterally are normal. There is insufficient detail to visualize the arteries in the area of the left frontal lobe where there is a large hyperintense white matter focus. Reading: Normal MR angiogram scan of the [place]. Dictated By: 12/26/1626 SEBAS ANG MD. Signed By: 12/26/1634 SEBAS ANG MD. [address] [facility] [place] [address] PH: DD: [phone] FAX: [phone] ~DIAGNOSTIC IMAGING REPORT~ Patient: Balaji Mcclure : 1935 Sex: M Age: 81 Exam Name: MRI Brain WO Contrast Exam Date: 12/26/16 Report # : [id number] CPT Code: 82692 EMR/MR #: [id number] Ordering: JEAN PAUL VALDEZ Admiting: JEAN PAUL VALDEZ DO Primary: Mumtaz Madrigal MD Attending: JEAN PAUL VALDEZ DO Signed MRI BRAIN SCAN WITHOUT IV CONTRAST, 12/26/2016 7:00 AM: Clinical History: Stroke. Previous Exam: None at this facility. Sequences: Sagittal T1; Axial FRANCESCO T2 and FLAIR. Axial diffusion weighted images with ADC mapping were also performed. The fourth ventricle is of normal size, shape, position and contour. The third and lateral ventricles are moderately dilated but are otherwise normal. There are multiple punctate periventricular white matter hyperintensities bilaterally that extend into the watershed territory, consistent with small vessel ischemic disease. This amount of ischemic disease is moderately advanced for the patient' s age. In the left frontal lobe, there is a focus of hyperintensity measuring about 20 mm in diameter that is not associated with any mass effect or more prominent focal atrophy. Diffusion-weighted imaging with ADC mapping shows no evidence of an acute infarction. This hyperintense area presumably represents a focal area of pronounced ischemia. The lack of mass effect would indicate a white matter process such as progressive multifocal leukoencephalopathy is unlikely. There is moderately severe cerebellar and very severe cerebral atrophy. There are no extracerebral mantels or shift of the midline structures. The paranasal sinuses are normal. Readin. There is a 20 mm focus of hyperintensity located in the left frontal lobe that exhibits no mass effect or evidence of increased focal atrophic change involving the gyri. There is evidence of moderately advanced small vessel ischemic disease in this larger focus may be of the same process. There is no evidence of an acute hemorrhagic or bland infarct. 2. Moderately severe cerebellar atrophy and very severe cerebral atrophy. Dictated By: 12/26/16 0851 SEBAS ANG MD. Signed By: 12/26/16 0903 SEBAS ANG MD. [address] [facility] [place] [address] PH: DD: [phone] FAX: [phone] ~DIAGNOSTIC IMAGING REPORT~ Patient: Balaji Mcclure : 1935 Sex: M Age: 81 Exam Name: CT Head WO Contrast Exam Date: 12/25/16 Report # : [id number] CPT Code: 09399 EMR/MR #: [id number] Ordering: Kwesi Serrato Admiting: Primary: Mumtaz Madrigal MD Attending: Signed CT HEAD SCAN WITHOUT IV CONTRAST, 12/25/2016 4:59 PM : Clinical History: Acute mental status change. Previous Exam: None at this facility. Scans are obtained from the foramen magnum to the vertex without IV contrast. None fourth ventricle The third and lateral ventricles are moderately dilated but are otherwise normal. There is no evidence of an acute hemorrhagic infarct. There is a low-density lesion measuring about 20 mm in diameter in the left frontal lobe without evidence of mass effect. The gyral pattern in this location is normal in this low density lesion most likely represents an acute or subacute bland infarct. There are multiple punctate periventricular white matter lucencies bilaterally that extend into the watershed territory, consistent with small vessel ischemic disease. This amount of ischemic disease is appropriate for the patient's age. There is moderately severe cerebellar and severe cerebral atrophy. There are no extracerebral mantles or shift of the midline structures. Bone window evaluation is normal. The paranasal sinuses are normal. READIN. There is a 20 mm focus of low density located in the left frontal lobe without mass effect or evidence of localized cortical atrophy. This low density lesion would be consistent with an acute or subacute bland infarct. 2. Small vessel ischemic disease. 3. Moderately severe cerebellar and severe cerebral atrophy. Dictated By: 12/25/16 1755 SBEAS ANG MD. Signed By: 12/25/16 4255 SEBAS ANG MD. [address] [facility] [place] [address] PH: DD: [phone] FAX: [phone] ~DIAGNOSTIC IMAGING REPORT~ Patient: Balaji Mcclure : 1935 Sex: M Age: 81 Exam Name: XR CXR 2VW PA/LAT Exam Date: 12/25/16 Report # : [id number] CPT Code: 64694 EMR/MR #: [id number] Ordering: Kwesi Serrato Admiting: Primary: Mumtaz Madrigal MD Attending: Signed PA /LATERAL CHEST X-RAY, 12/25/2016 3:27 PM : Clinical History: Shortness of breath. Cough. Broken ribs. Previous Exam: 12/20/2016. There are fractures of the left fourth through 10th ribs posterolaterally. Heart size is normal. There is no pneumothorax but there is a new left pleural effusion with left lower lobe atelectasis. Mediastinal structures are normal. There are no pulmonary nodules. Readin. Fractures of the left fourth through 10th ribs posterolaterally. There is no pneumothorax. 2. Interval development of a small left pleural effusion. There is chronic blunting of the right costophrenic angle. Dictated By: 12/25/16 180 SEBAS ANG MD. Signed By: 12/25/16 181 SEBAS ANG MD. Patient Problems - Patient Problem List (1) Postconcussive syndrome Current Visit: Yes Status: Suspected Code(s): F07.81 - Postconcussional syndrome Category: Medical (2) Rib fractures Current Visit: Yes Status: Acute Code(s): S22.39XA - Fracture of one rib, unspecified side, initial encounter for closed fracture Qualifiers: Encounter type: subsequent encounter Rib fracture type: multiple ribs Fracture type: closed Laterality: left Fracture healing: with routine healing Qualified Code(s): S22.42XD - Multiple fractures of ribs, left side, subsequent encounter for fracture with routine healing Category: Medical (3) Benign prostatic hyperplasia Current Visit: Yes Status: Chronic Qualifiers: Lower urinary tract symptom presence: symptoms present Lower urinary tract symptom detail: unspecified Qualified Code(s): N40.1 - Benign prostatic hyperplasia with lower urinary tract symptoms; N40.1 - Benign prostatic hyperplasia with lower urinary tract symptoms Category: Medical (4) Type 2 diabetes mellitus Current Visit: Yes Status: Chronic Qualifiers: Diabetes mellitus complication status: without complication Diabetes mellitus termite exterminator helper insulin use: without termite exterminator helper use Qualified Code(s): E11.9 - Type 2 diabetes mellitus without complications Category: Medical (5) Hypothyroidism (acquired) Current Visit: Yes Status: Chronic Onset Date: 06/28/12 Code(s): E03.9 - Hypothyroidism, unspecified Category: Medical (6) Hyperlipidemia Current Visit: Yes Status: Chronic Onset Date: 06/28/12 Code(s): E78.5 - Hyperlipidemia, unspecified Qualifiers: Hyperlipidemia type: unspecified Qualified Code(s): E78.5 - Hyperlipidemia , unspecified Category: Medical (7) Benign hypertension Current Visit: Yes Status: Chronic Onset Date: 06/28/12 Code(s): I10 - Essential (primary) hypertension Category: Medical (8) Altered mental status Current Visit: Yes Status: Resolved Code(s): R41.82 - Altered mental status , unspecified Qualifiers: Altered mental status type: disorientation Qualified Code(s): R41.0 - Disorientation, unspecified Category: Medical
== END 2016-12-27 16:55 | disposition home or self-care (01) | DRG 103 ==
LOC: ER 15:14 → MED/SURG 19:35
PROVIDERS: ADMIT Family Medicine; ATTEND Family Medicine

== ENCOUNTER 2017-04-20 07:12 | Inpatient (IN) ==
--- NOTE | 2017-04-20 07:23 | PDOC ---
Fall HPI - General Chief Complaint: Fall Stated Complaint: FALL, LEG WEAKNESS, COUGH Date Seen by Provider: 04/20/17 Time Seen by Provider: 07:23 - History of Present Illness Initial Comments: Balaji is a 82 year old man coming in today after a fall. At about 1am this morning, his daughter heard a THUMP in his bedroom, she went in and found him on the floor. He said he was sitting on the edge of his bed and fell off. He doesn't think he hit his head. He has been weak and a little confused since then. His daughter reports that the weakness has been getting worse for the past 4 months, and especially so since the fall this morning. He also has a cough that she is worried about. He denies fevers, denies shortness of breath, denies abdominal pain, denies neck pain, denies headache. He states he had some chest pain yesterday, but is vague about the details and denies having chest pain right now. He is able to walk unassisted and denies dizziness or lightheadedness. Have you received a tetanus shot in the past 10 years?: Yes - Patient Home Medications Home Medications: Home Medications Aspirin 1 tab PO DAILY tab 11/08/15 Potassium 1 tab PO QD tab 11/08/15 lisinopril 10 mg tablet 10 mg PO QDAY #90 tab 11/13/16 tamsulosin 0.4 mg capsule 0.4 mg PO DAILY #90 tab-cap 11/13/16 glucosamine [id number] yesica 1,500 mg-400 unit-100 mg tablet 1 tab PO QDAY tab 12/04/16 magnesium 200 mg tablet 200 mg PO QD tab 12/04/16 polyethylene glycol 3350 17 gram/dose oral powder 17 g PO QDAY #765 g 12/04/16 levothyroxine 88 mcg tablet 88 mcg PO DAILY #90 tab 12/11/16 - Patient Allergies Allergies/Adverse Reactions: Allergies 3 Allergy/AdvReac Type Severity Reaction Status Date / Time codeine Allergy Severe SYNCOPAL Verified 04/20/17 08:16 EPISODE opiates AdvReac Severe HALLUCINATI Uncoded 04/20/17 08:16 ONS Past Medical History - heen HEENT History: Denies History Cardiovascular History: Hypertension, Hyperlipidemia Respiratory History: Denies History Gastrointestinal History: Denies History Genitourinary History: Other (please comment) Additional Genitourinary History: BPH Endocrine History: Hypothyroidism Musculoskeletal History: Back Pain, Joint Pain Neurological History: Denies History Blood Disorders: Denies History Psychiatric History: Denies History History of Sexually Transmitted Diseases: No Cancer History: Denies History History of MDRO: No History of Other Communicable Diseases: No Alcohol Use: Rarely In the Past 12 Months, Have Used or Abuse Any Substance: None Previous Surgical History: No Type / Date of Surgery: INGUINAL HERNIA REPAIR, APPENDECTOMY Anesthesia Reactions: No Malignant Hyperthermia: No Significant Family History: No pertinent family hx Past Medical History Reviewed: Reviewed - No Changes ROS - Limitations ROS Limitations: No Limitations Constitution: REPORTS: Weakness Cardiovascular: REPORTS: Denies Cardiac Symptoms Respiratory: REPORTS: Denies Resp Symptoms Neurological: REPORTS: Denies Neuro Symptoms Gastrointestinal: REPORTS: Denies GI Symptoms Endocrine: REPORTS: Denies Symptoms Musculoskeletal: REPORTS: Denies MS Symptoms Genitourinary: REPORTS: Denies Symptoms Eyes: REPORTS: Denies Symptoms ENT: REPORTS: Denies Symptoms Skin: REPORTS: Denies Skin Symptoms Lympathic: REPORTS: Denies Lympathic Symptoms Immunologic: POSITIVE: Denies Symptoms Psychiatric: POSITIVE: Denies Psych Symptoms Fall Physical Exam - General Appearance General Appearance: POSITIVE: Alert, Cooperative, No Acute Distress - HEENT HEENT: POSITIVE: Head Inspection Nml, Eyes Inspection Nml, Ears Inspection Nml, Nose Inspection Nml, PERRL, EOMI - Pupil Size Pupil Size: 2 mm: Bilateral - Neck Neck: POSITIVE: Non Tender, Painless ROM - Respiratory / CVS Respiratory / CVS: POSITIVE: Chest Non Tender, No Ecchymosis, No Respiratory Distress, Heart Sounds Normal, Regular Rate/Rhythm, Other (poor respiratory effort) Peripheral Pulses: Radial (R): 2+, Radial (L): 2+ - Abdomen Abdomen: Soft: (All Quadrants), Normal Bowel Sounds: (All Quadrants), Denies Tenderness: (All Quadrants), No Distention: (All Quadrants), No Rigidity: (All Quadrants) - Neuro / Psych Neuro / Psych: POSITIVE: Oriented X3, 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 no acute findings on head CT CBC and BMP: 04/20/17 07:51 04/20/17 07:30 EKG Interpretation:: POSITIVE: Other (sinus rate 74, no ST segment elevation) - Patient's Progress MDM / ED Course: Mr Mcclure is a 82 year old man coming in today with weakness and a fall out of bed. His troponin was acutely elevated mildly, with no concerning EKG changes. He also has a small acute right pleural effusion. He does not endorse chest pain at this time. Plan will be to admit to trend troponins and monitor his neurologic status. Patient Care Time - Estimated PCT Patient Care Time (In Minutes): 30 Vital Signs - Recent Vital Signs Vital Signs: Vital Signs (Last 8 hours) Temp Pulse Resp BP Pulse Ox 04/20/17 08:06 99.1 F 72 18 144/106 9 - VS Reviewed Vital Signs Reviewed: Yes Discharge Clinical Impression: Weakness, Elevated troponin Discharge Disposition: Admit to Inpatient Condition: Fair Follow Up With: SONAL GARCIA [Primary Care Provider] - Date Decision to Admit to Inpatient: 04/20/17 Time Decision to Admit to Inpatient: 08:49
[2017-04-20] MEDS ORDERED: Sodium Chloride 0.9% 1,000 ML PRIMARY IV ONE (07:30)
--- NOTE | 2017-04-20 07:49 | EKG ---
[address] [place] [address] Measurements Intervals [place] Rate: 74 P: 67 [place]: 150 QRS: 61 QRSD: 97 T: 50 QT: 375 QTc: 403 Interpretive Statements SINUS RHYTHM NONSPECIFIC ST & T-WAVE ABNORMALITY Compared to ECG 12/26/2016 11:29:00 T-wave abnormality now present Electronically Signed On 04-20-17 07:58:55 MST by Derek Arguello MD [email or web address]
[2017-04-20 07:55] LABS: BASOPHILS # (AUTO) 0.02 10*3/UL; BASOPHILS % (AUTO) 0.2 % (0-1); EOSINOPHILS # (AUTO) 0 10*3/UL; EOSINOPHILS % (AUTO) 0 % (0-8); Hematocrit [HCT] 46.9 % (42.0-52.0); Hemoglobin [HGB] 15.8 g/dL (14.0-18.0); LYMPHOCYTES # (AUTO) 1.13 10*3/uL; MEAN CORPUSCULAR HEMOGLOBIN 30.7 PG (27-31); MEAN CORPUSCULAR HGB CONC 33.7 g/dL (33-37); MEAN CORPUSCULAR VOLUME 91.1 FL (80-90); MEAN PLATELET VOLUME 9.8 FL (7.4-12.2); MONOCYTES # (AUTO) 1.65 10*3/UL (0.3-0.8); MONOCYTES % (AUTO) 16.5 % (5-15); NEUTROPHILS # (AUTO) 7.16 10*3/UL; NEUTROPHILS % (AUTO) 71.8 % (50-80); RED BLOOD COUNT 5.15 10^6/uL (4.70-6.10)
[2017-04-20 08:00] LABS: PLATELET MORPHOLOGY COMMENT NORMAL MORPHOLOGY (NORM); RBC MORPHOLOGY COMMENT NORMAL MORPHOLOGY (NORM); WBC MORPHOLOGY COMMENT NORMAL MORPHOLOGY (NORM)
[2017-04-20 08:05] LABS: BLOOD UREA NITROGEN 21 mg/dL (7-22); SERUM ALBUMIN 4.7 g/dL (3.5-4.8)
--- NOTE | 2017-04-20 08:37 | DI ---
XR CXR 2VW PA/LAT,04/20/2017 7:30 AM: Clinical History: Cough Previous Exam: None at this facility. Findings: PA and lateral views of the chest are obtained, and demonstrate a right pleural effusion. The lungs are otherwise clear. The cardiomediastinum and bony thorax are unremarkable. Impression: Isolated right pleural effusion.
--- NOTE | 2017-04-20 08:39 | DI ---
CT Head WO Contrast,04/20/2017 7:30 AM: Clinical History: Status post fall Previous Exam: December 25, 2016 Findings: Multiple helically acquired CT images are obtained through the brain without contrast, and demonstrat e diffuse age-related volume loss. There are areas of hypodensity predominantly within the periventri cular white matter. This is most consistent with small vessel ischemic change. Impression: Diffuse age-related volume loss without acute intracranial pathology.
[2017-04-20 10:19] LABS: BILIRUBIN,URINE NEGATIVE (NEG); CLARITY,URINE CLEAR (CLEAR); COLOR,URINE YELLOW; GLUCOSE, URINE (UA) 100 mg/dL (NEG); OCCULT BLOOD,URINE MODERATE (NEG); PROTEIN,URINE 100 mg/dl (NEG)
[2017-04-20] MEDS ORDERED: CALCIUM CARBONATE 500 MG (TUMS) CHEWABLE TABLET PO PRN (10:20)
[2017-04-20] MEDS ORDERED: LIDOCAINE W/ SODIUM BICARB 0.5 ML SYR SUBD PRN (10:20)
[2017-04-20] MEDS ORDERED: ONDANSETRON 4 MG/2 ML VIAL IVP PRN (10:20)
[2017-04-20] MEDS ORDERED: DOCUSATE 100 MG CAPSULE PO PRN (10:20)
[2017-04-20] MEDS ORDERED: NORMAL SALINE 10 ML SYRINGE FLUSH IVP PRN (10:20)
[2017-04-20 10:21] LABS: URINE SAMPLE TYPE CLEAN CATCH URINE
[2017-04-20 10:24] LABS: RBC,URINE 0-1 /hpf; SQUAMOUS EPITHELIAL CELL,UR FEW; WBC,URINE 0-1
[2017-04-20] MEDS ORDERED: POLYETHYLENE GLYCOL 3350 17 GM POWDER PO PRN (11:15)
[2017-04-20] MEDS: OSELTAMIVIR PHOSPHATE 75 MG CAPSULE PO SCH ×2 (11:53→20:58)
[2017-04-20] MEDS: LISINOPRIL 10 MG TABLET PO SCH (11:53)
--- NOTE | 2017-04-20 16:03 | PDOC ---
HPI - History of Present Illness Date of Service: 04/20/17 Time of Service: 09:45 Chief Complaint: altered and fall. History of Present Illness: This is a pleasant 82 YO male brought in for evaluation after a fall at home and an altered mental status. The patient reportedly has had worsening sun- downing, confusion, and has never really recovered from concussion mentally since . The daughter stated the patient cannot do computatations to manage a check book. He has no complaints of pain to me know. The patient was complaining of chest pain earlier, but it all resolved and the patient has no memory of that. He cannot tell me the time or day. No exacerbating factors. The patient was coughing frequently and the daughter stated she had been on antibiotics for a week without improvement. The history was taken from her due to the patient's lack of ability to recall any current details. The patient was afebrile in the ER, but had a temperature here of 100.2 degrees F. I ordered an influenza study which was positive. He has been mildly hypoxic and despite no chest pain has a small elevation in his troponin that is not suggestive of ACS. The patient's compliance with pills has been poor and his appetite has waned in recent months. Past Medical History Medical History: 1. BPH. 2. Hypercholesterolemia. 3. Hypertension. 4. Diabetes most 2. 5. Hypothyroidism. 6. History of colon polyps. 7. Shoulder problems, right side worse than left Surgical History: 1. History of appendectomy. 2. Hernia repair. 3. History of colonoscopy. Pertinent Family History: Significant for diabetes in siblings and parents. Past Social History: Smoked remotely over 40 years ago. Does not drink alcohol. [place] Has children that are described as healthy. reviewed form prior exams. one of his daugter's, not his POA, lives [place] the [place] with him. Tobacco Use: Never Smoker In the Past 12 Months, Have Used or Abuse Any of the Following Substance: None Alcohol Use: None Medication / Allergies Home Medications: Home Medications 3 Medication Instructions Recorded Confirmed Type Aspirin 1 tab PO DAILY tab 11/08/15 04/20/17 History Potassium 1 tab PO QD tab 11/08/15 04/20/17 History lisinopril 10 mg tablet 10 mg PO QDAY #90 tab 11/13/16 04/20/17 Rx tamsulosin 0.4 mg capsule 0.4 mg PO DAILY #90 tab-cap 11/13/16 04/20/17 Rx glucosamine [id number] 1 tab PO QDAY tab 12/04/16 04/20/17 History yesica 1,500 mg-400 unit-100 mg tablet magnesium 200 mg tablet 200 mg PO QD tab 12/04/16 04/20/17 History polyethylene glycol 3350 17 17 g PO QDAY #765 g 12/04/16 04/20/17 Rx gram/dose oral powder levothyroxine 88 mcg tablet 88 mcg PO DAILY #90 tab 12/11/16 04/20/17 Rx Allergies/Adverse Reactions: Allergies 3 Allergy/AdvReac Type Severity Reaction Status Date / Time codeine Allergy Severe SYNCOPAL Verified 04/20/17 08:16 EPISODE opiates AdvReac Severe HALLUCINATI Uncoded 04/20/17 08:16 ONS Review of Systems - Review of Systems ROS Unobtainable: Due to Mental Status (I believe the patient is demented.) Exam - Vitals Vital Signs: Vital Signs Temperature 98.3 F Temperature Source Oral Pulse Rate [Pulse Oximeter] 63 Pulse Rate 65 Respiratory Rate 18 Blood Pressure [Left Arm] 140/78 Blood Pressure 155/85 Pulse Ox 91 Oxygen Delivery Method Room Air Height 6 ft Weight 161 lb 2.256 oz - General General Appearance: No Acute Distress, Cooperative - Head Head Exam: Normal Inspection, Normocephalic, Atraumatic - Eye Eye Exam: POSITIVE: No Scleral Icterus - ENT ENT Exam: POSITIVE: Mucous Membranes Moist - Neck Neck Exam: Normal Inspection, No Tenderness, No Lymphadenopathy, No Thyromegaly - Respiratory Respiratory Exam: POSITIVE: Breathing Non Labored, Coarse Breath Sounds - Cardiovascular Cardiovascular Exam: POSITIVE: RRR, No Murmur, No Clicks, No Gallops, No Rubs, No JVD - GI/Abdominal GI/Abdominal Exam: POSITIVE: Normal Bowel Sounds, Non Tender, Non Distended, Soft - Rectal Rectal Exam: POSITIVE: Deferred - External Exam: POSITIVE: Deferred Exam: POSITIVE: Deferred - Extremities Extremities Exam: POSITIVE: No Clubbing Present, No Edema Present, No Cyanosis Present - Back Back Exam: POSITIVE: No CVA Tenderness - Neurological Neurological Exam: POSITIVE: Alert, No Facial Droop, Speech Intact / Clear, Moves All Extremities Equally Additional Neurological Exam Details: oriented to person, not to time or situation. - Psychiatric Psychiatric Exam: POSITIVE: Normal Affect, Normal Mood Results - Labs CBC and BMP: 04/20/17 07:51 04/20/17 07:30 Additional Lab Results: Laboratory Results 04/20/17 04/20/17 04/20/17 Range/Units 07:30 07:51 07:51 WBC 9.98 (4.8-10.8) 10^3/uL RBC 5.15 (4.70-6.10) 10^6/uL Hgb 15.8 (14.0-18.0) g/dL Hct 46.9 (42.0-52.0) % MCV 91.1 H (80-90) FL MCH 30.7 (27-31) PG MCHC 33.7 (33-37) g/dL RDW Std Deviation 46.3 (39-50) fL RDW Coeff of Alicia 14.0 (11.5-14.5) % Plt Count 141 (140-350) 10*3/uL MPV 9.8 (7.4-12.2) FL Immature Gran % (Auto) 0.2 (0-5) % Neut % (Auto) 71.8 (50-80) % Lymph % (Auto) 11.3 (10-50) % Arthur % (Auto) 16.5 H (5-15) % Eos % (Auto) 0 (0-8) % Baso % (Auto) 0.2 (0-1) % Immature Gran # (Auto) 0.02 10*3/UL Neut # (Auto) 7.16 10*3/UL Lymph # (Auto) 1.13 10*3/uL Arthur # (Auto) 1.65 H (0.3-0.8) 10*3/UL Eos # (Auto) 0 10*3/UL Baso # (Auto) 0.02 10*3/UL WBC Morphology Comment Normal morphology (NORM) Plt Morphology Comment Normal morphology (NORM) RBC Morph Comment Normal morphology (NORM) Sodium 135 (135-145) meq/L Potassium 3.9 (3.8-5.2) meq/L Chloride 96 L (98-112) meq/L Carbon Dioxide 27 (23-33) meq/L Anion Gap 12 (5-20) BUN 21 (7-22) mg/dL Creatinine 1.2 (0.70-1.50) mg/dL BUN/Creatinine Ratio 17.50 (6-20) Glucose 198 H (78-110) mg/dL Calculated Osmolality 288.0 (267-292) mOsm/kg Calcium 9.3 (8.7-10.7) mg/dL Total Bilirubin 1.1 (0.3-1.2) mg/dL AST 45 (21-57) IU/L ALT 43 (21-72) IU/L Alkaline Phosphatase 75 (38-126) IU/L Troponin I (< 0.040) ng/mL Total Protein 7.6 (6.1-8.0) g/dL Albumin 4.7 (3.5-4.8) g/dL Globulin 2.9 (2.50-4.10) g/dL Albumin/Globulin Ratio 1.60 (1.3-2.0) mg/g Vitamin B12 (239-931) pg/mL Vitamin D 25-Hydroxy (30-100) NG/ML Serum Folate (2.76-20.0) NG/ML TSH 11.1 H (0.2700-4.2000) uIU/mL Free T4 0.63 L (0.93-1.71) ng/dL Ur Collection Type Urine Color Urine Clarity (CLEAR) Urine pH (5.0-8.5) Ur Specific Brielle (1.005-1.030) Urine Protein (NEG) mg/dl Urine Glucose (UA) (NEG) mg/dL Urine Ketones (NEG) Urine Occult Blood (NEG) Urine Nitrate (NEG) Urine Bilirubin (NEG) Urine Urobilinogen (0.2) mg/dL Ur Leukocyte Esterase (NEG) Urine RBC (NONE) /hpf Urine WBC (NONE) Ur Squamous Epith Cells (NONE) Ur Renal Epithelial Cell (NONE) Urine Crystals Urine Bacteria (NONE) Urine Casts Urine Mucus (NONE) Urine Trichomonas (NONE) Urine Yeast (NONE) 04/20/17 04/20/17 04/20/17 Range/Units 07:51 10:13 10:24 WBC (4.8-10.8) 10^3/uL RBC (4.70-6.10) 10^6/uL Hgb (14.0-18.0) g/dL Hct (42.0-52.0) % MCV (80-90) FL MCH (27-31) PG MCHC (33-37) g/dL RDW Std Deviation (39-50) fL RDW Coeff of Alciia (11.5-14.5) % Plt Count (140-350) 10*3/uL MPV (7.4-12.2) FL Immature Gran % (Auto) (0-5) % Neut % (Auto) (50-80) % Lymph % (Auto) (10-50) % Arthur % (Auto) (5-15) % Eos % (Auto) (0-8) % Baso % (Auto) (0-1) % Immature Gran # (Auto) 10*3/UL Neut # (Auto) 10*3/UL Lymph # (Auto) 10*3/uL Arthur # (Auto) (0.3-0.8) 10*3/UL Eos # (Auto) 10*3/UL Baso # (Auto) 10*3/UL WBC Morphology Comment (NORM) Plt Morphology Comment (NORM) RBC Morph Comment (NORM) Sodium (135-145) meq/L Potassium (3.8-5.2) meq/L Chloride (98-112) meq/L Carbon Dioxide (23-33) meq/L Anion Gap (5-20) BUN (7-22) mg/dL Creatinine (0.70-1.50) mg/dL BUN/Creatinine Ratio (6-20) Glucose (78-110) mg/dL Calculated Osmolality (267-292) mOsm/kg Calcium (8.7-10.7) mg/dL Total Bilirubin (0.3-1.2) mg/dL AST (21-57) IU/L ALT (21-72) IU/L Alkaline Phosphatase (38-126) IU/L Troponin I 0.087 H (< 0.040) ng/mL Total Protein (6.1-8.0) g/dL Albumin (3.5-4.8) g/dL Globulin (2.50-4.10) g/dL Albumin/Globulin Ratio (1.3-2.0) mg/g Vitamin B12 (239-931) pg/mL Vitamin D 25-Hydroxy 36.3 (30-100) NG/ML Serum Folate (2.76-20.0) NG/ML TSH (0.2700-4.2000) uIU/mL Free T4 (0.93-1.71) ng/dL Ur Collection Type Clean catch urine Urine Color Yellow Urine Clarity Clear (CLEAR) Urine pH 6.0 (5.0-8.5) Ur Specific Brielle 1.025 (1.005-1.030) Urine Protein 100 (NEG) mg/dl Urine Glucose (UA) 100 (NEG) mg/dL Urine Ketones Trace (NEG) Urine Occult Blood Moderate (NEG) Urine Nitrate Negative (NEG) Urine Bilirubin Negative (NEG) Urine Urobilinogen 1.0 (0.2) mg/dL Ur Leukocyte Esterase Negative (NEG) Urine RBC 0-1 (NONE) /hpf Urine WBC 0-1 (NONE) Ur Squamous Epith Cells Few (NONE) Ur Renal Epithelial Cell None (NONE) Urine Crystals None Urine Bacteria None (NONE) Urine Casts None Urine Mucus Moderate (NONE) Urine Trichomonas None (NONE) Urine Yeast None (NONE) 04/20/17 04/20/17 Range/Units 10:24 11:15 WBC (4.8-10.8) 10^3/uL RBC (4.70-6.10) 10^6/uL Hgb (14.0-18.0) g/dL Hct (42.0-52.0) % MCV (80-90) FL MCH (27-31) PG MCHC (33-37) g/dL RDW Std Deviation (39-50) fL RDW Coeff of Alicia (11.5-14.5) % Plt Count (140-350) 10*3/uL MPV (7.4-12.2) FL Immature Gran % (Auto) (0-5) % Neut % (Auto) (50-80) % Lymph % (Auto) (10-50) % Arthur % (Auto) (5-15) % Eos % (Auto) (0-8) % Baso % (Auto) (0-1) % Immature Gran # (Auto) 10*3/UL Neut # (Auto) 10*3/UL Lymph # (Auto) 10*3/uL Arthur # (Auto) (0.3-0.8) 10*3/UL Eos # (Auto) 10*3/UL Baso # (Auto) 10*3/UL WBC Morphology Comment (NORM) Plt Morphology Comment (NORM) RBC Morph Comment (NORM) Sodium (135-145) meq/L Potassium (3.8-5.2) meq/L Chloride (98-112) meq/L Carbon Dioxide (23-33) meq/L Anion Gap (5-20) BUN (7-22) mg/dL Creatinine (0.70-1.50) mg/dL BUN/Creatinine Ratio (6-20) Glucose (78-110) mg/dL Calculated Osmolality (267-292) mOsm/kg Calcium (8.7-10.7) mg/dL Total Bilirubin (0.3-1.2) mg/dL AST (21-57) IU/L ALT (21-72) IU/L Alkaline Phosphatase (38-126) IU/L Troponin I 0.098 H (< 0.040) ng/mL Total Protein (6.1-8.0) g/dL Albumin (3.5-4.8) g/dL Globulin (2.50-4.10) g/dL Albumin/Globulin Ratio (1.3-2.0) mg/g Vitamin B12 481 (239-931) pg/mL Vitamin D 25-Hydroxy (30-100) NG/ML Serum Folate 17.0 (2.76-20.0) NG/ML TSH (0.2700-4.2000) uIU/mL Free T4 (0.93-1.71) ng/dL Ur Collection Type Urine Color Urine Clarity (CLEAR) Urine pH (5.0-8.5) Ur Specific Brielle (1.005-1.030) Urine Protein (NEG) mg/dl Urine Glucose (UA) (NEG) mg/dL Urine Ketones (NEG) Urine Occult Blood (NEG) Urine Nitrate (NEG) Urine Bilirubin (NEG) Urine Urobilinogen (0.2) mg/dL Ur Leukocyte Esterase (NEG) Urine RBC (NONE) /hpf Urine WBC (NONE) Ur Squamous Epith Cells (NONE) Ur Renal Epithelial Cell (NONE) Urine Crystals Urine Bacteria (NONE) Urine Casts Urine Mucus (NONE) Urine Trichomonas (NONE) Urine Yeast (NONE) - EKG Data -: EKG Interpreted by Me Rate: Normal EKG Shows Normal: Sinus Rhythm - EKG Data EKG Interpretation: Nonspecific ST-T Wave Changes (t wave flattening in precordial leads) - Imaging Status: Image Reviewed by Me (CXR looks like there is a right sided effusion. no pneumonia seen.) Assessment and Plan - Patient Problems (1) Altered mental status Current Visit: Yes Status: Resolved Code(s): R41.82 - Altered mental status , unspecified Qualifiers: Altered mental status type: disorientation Qualified Code(s): R41.0 - Disorientation, unspecified (2) Dementia Current Visit: Yes Status: Acute Code(s): F03.90 - Unspecified dementia without behavioral disturbance Qualifiers: Dementia type: vascular dementia Dementia behavioral disturbance: without behavioral disturbance Qualified Code(s): F01.50 - Vascular dementia without behavioral disturbance (3) Benign prostatic hyperplasia Current Visit: Yes Status: Chronic Qualifiers: Lower urinary tract symptom presence: symptoms present Lower urinary tract symptom detail: unspecified Qualified Code(s): N40.1 - Benign prostatic hyperplasia with lower urinary tract symptoms (4) Type 2 diabetes mellitus Current Visit: Yes Status: Chronic Qualifiers: Diabetes mellitus complication status: without complication Diabetes mellitus continuous churn buttermaker insulin use: without continuous churn buttermaker use Qualified Code(s): E11.9 - Type 2 diabetes mellitus without complications (5) Hypothyroidism (acquired) Current Visit: Yes Status: Chronic Onset Date: 06/28/12 Code(s): E03.9 - Hypothyroidism, unspecified (6) Hyperlipidemia Current Visit: Yes Status: Chronic Onset Date: 06/28/12 Code(s): E78.5 - Hyperlipidemia, unspecified Qualifiers: Hyperlipidemia type: unspecified Qualified Code(s): E78.5 - Hyperlipidemia , unspecified (7) Benign hypertension Current Visit: Yes Status: Chronic Onset Date: 06/28/12 Code(s): I10 - Essential (primary) hypertension - Assessment / Plan Additional Assessment/Plan Details: admit the patient discussed with radiology about effusion. They thought there could be a raised hemidiaphragm and recommended a CT because if pleural effusion is present, then pulmonary embolism would be in differential diagnosis. test for influenza, positive. by history, memory decline and cognitive impairment have been worsening for some time--probably has vascular infarct dementia or Alzheimer's dementia. check vitamin levels and replaced if necessary. isolation (droplets) tamiflu check labs tomorrow recommended consideration to daughter for SNF. full code for now.
[2017-04-20] MEDS ORDERED: CYANOCOBALAMIN 1000 MCG/1 ML VIAL IM ONE (17:55)
[2017-04-20] MEDS: TAMSULOSIN 0.4 MG CAPSULE PO SCH (20:58)
[2017-04-21] MEDS: LEVOTHYROXINE 112 MCG TABLET PO SCH (04:50)
[2017-04-21 05:14] LABS: BASOPHILS # (AUTO) 0.01 10*3/UL; BASOPHILS % (AUTO) 0.1 % (0-1); EOSINOPHILS # (AUTO) 0.01 10*3/UL; EOSINOPHILS % (AUTO) 0.1 % (0-8); Hemoglobin [HGB] 14.8 g/dL (14.0-18.0); LYMPHOCYTES # (AUTO) 2.26 10*3/uL; MEAN CORPUSCULAR HEMOGLOBIN 30.1 PG (27-31); MEAN CORPUSCULAR HGB CONC 32.9 g/dL (33-37); MEAN CORPUSCULAR VOLUME 91.5 FL (80-90); MONOCYTES # (AUTO) 0.88 10*3/UL (0.3-0.8); MONOCYTES % (AUTO) 13.1 % (5-15); NEUTROPHILS # (AUTO) 3.53 10*3/UL; NEUTROPHILS % (AUTO) 52.9 % (50-80); RED BLOOD COUNT 4.92 10^6/uL (4.70-6.10)
[2017-04-21 05:25] LABS: BLOOD UREA NITROGEN 23 mg/dL (7-22)
[2017-04-21 05:28] LABS: PLATELET MORPHOLOGY COMMENT NORMAL MORPHOLOGY (NORM); RBC MORPHOLOGY COMMENT NORMAL MORPHOLOGY (NORM); WBC MORPHOLOGY COMMENT NORMAL MORPHOLOGY (NORM)
[2017-04-21] MEDS ORDERED: LEVOTHYROXINE 100 MCG TABLET PO SCH (05:30)
[2017-04-21] MEDS: ACETAMINOPHEN 325 MG TABLET PO PRN (07:04)
[2017-04-21] MEDS: MAGNESIUM OXIDE 400 MG TABLET PO SCH (07:04)
[2017-04-21] MEDS: ENOXAPARIN SODIUM 40 MG/0.4 ML SYRINGE SUBCUT SCH (09:37)
[2017-04-21] MEDS: ASPIRIN 325 MG TABLET PO SCH (09:38)
[2017-04-21] MEDS: LISINOPRIL 10 MG TABLET PO SCH (09:38)
[2017-04-21] MEDS: OSELTAMIVIR PHOSPHATE 75 MG CAPSULE PO SCH ×2 (09:38→21:49)
--- NOTE | 2017-04-21 14:33 | DI ---
CT CTA Chest Non-Coronary WWO,04/20/2017 2:56 PM: Clinical History: Pleural effusion and fluid question pulmonary embolism. Previous Exam: None at this facility. Findings: Multiple helically acquired CT images are obtained through the chest following intravenous administra tion of 65 cc of Isovue 370, and demonstrate normal pulmonary arteries. There is no filling defect or truncation. There is some subsegmental atelectasis in the lung bases. There is no significant pleural effusion. There is no mediastinal lymphadenopathy. Coronary artery calcifications are seen. A few peripheral vascular calcifications are noted within the aorta. Degenerative changes of the thoracic spine are also seen. The thyroid is normal. The upper abdomen is unremarkable. Impression: 1. No evidence of pulmonary embolism. 2. No pleural effusion.
--- NOTE | 2017-04-21 16:52 | PDOC(PROG) ---
Date and Time of Service: 04/21/2017, 1450 Interval History: No chest pain, shortness of breath. History is very difficult to obtain due to dementia. He doesn't even know that he is in the hospital. He was febrile with influenza B. He was upright eating his lunch at the time of my exam. I spoke to his daughters, they're not quite sure yet if they will proceed with fci placement or not. Occupational therapy will do a cognitive eval today. Objective : Data - Labs CBC and BMP: 04/21/17 04:44 04/21/17 04:44 Objective : Exam - General General Appearance: No Acute Distress, Cooperative Additional General Exam Details: Vital Signs (24 hrs) Temp Pulse Resp BP Pulse Ox 04/21/17 16:30 98.3 F 70 18 147/73 93 04/21/17 11:16 99.5 F 75 18 131/67 91 04/21/17 07:04 101.1 F H 04/21/17 06:42 101.7 F H 73 19 173/89 90 04/21/17 04:27 92 04/21/17 04:24 98.4 F 71 147/69 92 04/21/17 01:00 97.9 F 63 20 143/77 90 04/20/17 20:37 98 F 60 20 127/79 91 - Eye Eye Exam: No Scleral Icterus - ENT ENT Exam: Mucous Membranes Moist - Respiratory Respiratory Exam: Breathing Non Labored, Coarse Breath Sounds - Cardiovascular Cardiovascular Exam: RRR, No Murmur, No Clicks, No Gallops, No Rubs, No JVD - GI/Abdominal GI/Abdominal Exam: Normal Bowel Sounds, Non Tender, Non Distended, Soft - Extremities Extremities Exam: No Clubbing Present, No Edema Present, No Cyanosis Present - Neurological Neurological Exam: Alert, No Facial Droop, Speech Intact / Clear, Moves All Extremities Equally Assessment and Plan - Patient Problems (1) Influenza B Current Visit: Yes Status: Acute Code(s): J10.1 - Influenza due to other identified influenza virus with other respiratory manifestations (2) Altered mental status Current Visit: Yes Status: Resolved Code(s): R41.82 - Altered mental status , unspecified Qualifiers: Altered mental status type: disorientation Qualified Code(s): R41.0 - Disorientation, unspecified (3) Dementia Current Visit: Yes Status: Acute Code(s): F03.90 - Unspecified dementia without behavioral disturbance Qualifiers: Dementia type: vascular dementia Dementia behavioral disturbance: without behavioral disturbance Qualified Code(s): F01.50 - Vascular dementia without behavioral disturbance (4) Benign prostatic hyperplasia Current Visit: Yes Status: Chronic Qualifiers: Lower urinary tract symptom presence: symptoms present Lower urinary tract symptom detail: unspecified Qualified Code(s): N40.1 - Benign prostatic hyperplasia with lower urinary tract symptoms (5) Type 2 diabetes mellitus Current Visit: Yes Status: Chronic Qualifiers: Diabetes mellitus complication status: without complication Diabetes mellitus predatory animal exterminator insulin use: without predatory animal exterminator use Qualified Code(s): E11.9 - Type 2 diabetes mellitus without complications (6) Hypothyroidism (acquired) Current Visit: Yes Status: Chronic Onset Date: 06/28/12 Code(s): E03.9 - Hypothyroidism, unspecified (7) Hyperlipidemia Current Visit: Yes Status: Chronic Onset Date: 06/28/12 Code(s): E78.5 - Hyperlipidemia, unspecified Qualifiers: Hyperlipidemia type: unspecified Qualified Code(s): E78.5 - Hyperlipidemia , unspecified (8) Benign hypertension Current Visit: Yes Status: Chronic Onset Date: 06/28/12 Code(s): I10 - Essential (primary) hypertension - Assessment / Plan Additional Assessment/Plan Details: Overall, the patient probably has underlying dementia, that is severe that is likely worse in the setting of influenza B. Treat with Tamiflu. Oxygen as necessary. PT and OT. Probably need longterm facility care. Family did decide. Hopefully we can make a decision about disposition in the next 24-48 hours.
[2017-04-21] MEDS: TAMSULOSIN 0.4 MG CAPSULE PO SCH (21:49)
[2017-04-22] MEDS: LEVOTHYROXINE 112 MCG TABLET PO SCH (05:45)
[2017-04-22] MEDS: ENOXAPARIN SODIUM 40 MG/0.4 ML SYRINGE SUBCUT SCH (09:04)
[2017-04-22] MEDS: LISINOPRIL 10 MG TABLET PO SCH (09:05)
[2017-04-22] MEDS: OSELTAMIVIR PHOSPHATE 75 MG CAPSULE PO SCH ×2 (09:05→21:24)
[2017-04-22] MEDS: ASPIRIN 325 MG TABLET PO SCH (09:05)
[2017-04-22] MEDS: MAGNESIUM OXIDE 400 MG TABLET PO SCH (09:05)
--- NOTE | 2017-04-22 09:42 | OTI REPORT ---
Thank you for the referral of Balaji Mcclure. He was seen on 04/21/17 for an occupational therapy inpatient evaluation secondary to altered mental status. SUBJECTIVE: The patient is an 82-year-old male who says that he does live with his daughter Jannette. The patient [place] out of town. The patient states he does not remember falling; however, he states he fell about one month ago. The patient states that he stands or sits in the bathtub to take showers. The patient reports that both him daughter and himself participate in cooking tasks. He states his daughter does the driving, grocery shopping, cleaning, and laundry. PAST MEDICAL HISTORY: Past medical history can be found in the patient's medical record. OBJECTIVE FINDINGS: Today the patient participated in the [employer] Cognitive Assessment (MoCA) Visuospatial/executive: 15 Namin/3 Attention: 16 Language: 1/3 Abstraction: 0/2 Delayed recall: 0/5 Orientation: 0/6 The patient thought the year was 1996 and the month was March. He could not state what town he lived in. All he could say was that he lived "around town". Overall the patient scored 5/30, which places him in the SEVERELY cognitively impaired category. ASSESSMENT: At this time the patient is having a lot of cognitive processing difficulties. The patient has very minimal orientation. He did state throughout the assessment that he was just not with it and that his brain doesn't work like it used to. The patient did demonstrate confusion and more than likely should have 24-hour care at home for his safety. Occupational Therapy Goals: To be met following discharge from inpatient: Patient will have 24-hour care at home. TREATMENT PLAN: Patient had orders for a cognitive assessment only. If Dr. Mathews feels like the patient may need more therapy for balance, we will wait for that order. INITIAL TREATMENT: Treatment today consisted of the initial evaluation activities only. GINA
--- NOTE | 2017-04-22 16:19 | PDOC(PROG) ---
Date and Time of Service: 04/22/2017, 1618 Interval History: Cannot get out a reliable history for the patient due to his dementia. He does not seem to complain of any chest pain or shortness breath. He was eating lunch on my examination. Does not always answer questions appropriately. No reported cough. Fevers not present. Objective : Data - Labs CBC and BMP: 04/21/17 04:44 04/21/17 04:44 Objective : Exam - General General Appearance: No Acute Distress, Cooperative Additional General Exam Details: Vital Signs - Last Taken Temperature 98.5 F 04/22/17 11:44 Pulse Rate 66 04/22/17 11:44 Respiratory Rate 18 04/22/17 11:44 Blood Pressure 116/69 04/22/17 11:44 Pulse Ox 92 04/22/17 11:44 - Eye Eye Exam: No Scleral Icterus - ENT ENT Exam: Mucous Membranes Moist - Respiratory Respiratory Exam: Clear to Auscultation - Bilaterally, Breathing Non Labored - Cardiovascular Cardiovascular Exam: RRR, No Murmur, No Clicks, No Gallops, No Rubs, No JVD - GI/Abdominal GI/Abdominal Exam: Normal Bowel Sounds, Non Tender, Non Distended, Soft - Extremities Extremities Exam: No Clubbing Present, No Edema Present, No Cyanosis Present - Neurological Neurological Exam: Alert, No Facial Droop, Speech Intact / Clear, Moves All Extremities Equally Assessment and Plan - Patient Problems (1) Influenza B Current Visit: Yes Status: Acute Code(s): J10.1 - Influenza due to other identified influenza virus with other respiratory manifestations (2) Altered mental status Current Visit: Yes Status: Resolved Code(s): R41.82 - Altered mental status , unspecified Qualifiers: Altered mental status type: disorientation Qualified Code(s): R41.0 - Disorientation, unspecified (3) Dementia Current Visit: Yes Status: Acute Code(s): F03.90 - Unspecified dementia without behavioral disturbance Qualifiers: Dementia type: vascular dementia Dementia behavioral disturbance: without behavioral disturbance Qualified Code(s): F01.50 - Vascular dementia without behavioral disturbance (4) Benign prostatic hyperplasia Current Visit: Yes Status: Chronic Qualifiers: Lower urinary tract symptom presence: symptoms present Lower urinary tract symptom detail: unspecified Qualified Code(s): N40.1 - Benign prostatic hyperplasia with lower urinary tract symptoms (5) Type 2 diabetes mellitus Current Visit: Yes Status: Chronic Qualifiers: Diabetes mellitus complication status: without complication Diabetes mellitus residential insulin use: without termite control servicer use Qualified Code(s): E11.9 - Type 2 diabetes mellitus without complications (6) Hypothyroidism (acquired) Current Visit: Yes Status: Chronic Onset Date: 06/28/12 Code(s): E03.9 - Hypothyroidism, unspecified (7) Hyperlipidemia Current Visit: Yes Status: Chronic Onset Date: 06/28/12 Code(s): E78.5 - Hyperlipidemia, unspecified Qualifiers: Hyperlipidemia type: unspecified Qualified Code(s): E78.5 - Hyperlipidemia , unspecified (8) Benign hypertension Current Visit: Yes Status: Chronic Onset Date: 06/28/12 Code(s): I10 - Essential (primary) hypertension - Assessment / Plan Additional Assessment/Plan Details: Still awaiting family decision regarding whether or not they would like to pursue snf facility. In the meantime, if he does go snf facility, they will want him at least 5-7 days post flu associated fever before we can send him over. We will ask for swing bed evaluation. If the family decides that they do not want to pursue longterm, then we need to proceed towards an outpatient plan. We'll try to discuss if I see family members here today. Continue Tamiflu.
[2017-04-22] MEDS: ACETAMINOPHEN 325 MG TABLET PO PRN (21:24)
[2017-04-22] MEDS: TAMSULOSIN 0.4 MG CAPSULE PO SCH (21:24)
[2017-04-23] MEDS: LEVOTHYROXINE 112 MCG TABLET PO SCH (06:09)
[2017-04-23] MEDS: MAGNESIUM OXIDE 400 MG TABLET PO SCH (07:09)
[2017-04-23] MEDS: ASPIRIN 325 MG TABLET PO SCH (10:17)
[2017-04-23] MEDS: OSELTAMIVIR PHOSPHATE 75 MG CAPSULE PO SCH ×2 (10:17→21:57)
[2017-04-23] MEDS: ENOXAPARIN SODIUM 40 MG/0.4 ML SYRINGE SUBCUT SCH (10:17)
[2017-04-23] MEDS: LISINOPRIL 10 MG TABLET PO SCH (10:18)
--- NOTE | 2017-04-23 14:18 | PDOC(PROG) ---
Interval History: Patient has dementia and difficult to get the story he would rather go home if he could he states has no complaints Objective : Data - Labs CBC and BMP: 04/21/17 04:44 04/21/17 04:44 Objective : Exam - General General Appearance: Cooperative - Respiratory Respiratory Exam: Clear to Auscultation - Bilaterally, Breathing Non Labored, Normal To Percussion, Normal to Percussion and Palpation - Cardiovascular Cardiovascular Exam: RRR, No Murmur, No Clicks, No Gallops, No Rubs, PMI Non- Displaced Assessment and Plan - Patient Problems (1) Benign prostatic hyperplasia Current Visit: Yes Status: Chronic Qualifiers: Lower urinary tract symptom presence: symptoms present Lower urinary tract symptom detail: unspecified Qualified Code(s): N40.1 - Benign prostatic hyperplasia with lower urinary tract symptoms (2) Type 2 diabetes mellitus Current Visit: Yes Status: Chronic Qualifiers: Diabetes mellitus complication status: without complication Diabetes mellitus [facility] insulin use: without vermin exterminator use Qualified Code(s): E11.9 - Type 2 diabetes mellitus without complications (3) Benign hypertension Current Visit: Yes Status: Chronic Onset Date: 06/28/12 Code(s): I10 - Essential (primary) hypertension (4) Hyperlipidemia Current Visit: Yes Status: Chronic Onset Date: 06/28/12 Code(s): E78.5 - Hyperlipidemia, unspecified Qualifiers: Hyperlipidemia type: unspecified Qualified Code(s): E78.5 - Hyperlipidemia , unspecified (5) Hypothyroidism (acquired) Current Visit: Yes Status: Chronic Onset Date: 06/28/12 Code(s): E03.9 - Hypothyroidism, unspecified (6) Altered mental status Current Visit: Yes Status: Resolved Code(s): R41.82 - Altered mental status , unspecified Qualifiers: Altered mental status type: disorientation Qualified Code(s): R41.0 - Disorientation, unspecified (7) Dementia Current Visit: Yes Status: Acute Code(s): F03.90 - Unspecified dementia without behavioral disturbance Qualifiers: Dementia type: vascular dementia Dementia behavioral disturbance: without behavioral disturbance Qualified Code(s): F01.50 - Vascular dementia without behavioral disturbance (8) Influenza B Current Visit: Yes Status: Acute Code(s): J10.1 - Influenza due to other identified influenza virus with other respiratory manifestations - Assessment / Plan Additional Assessment/Plan Details: Patient is doing well influenza in remission on Tamiflu patient's last fever was on 37 still has the dementia OT recommends 24-hour care balance issues will consult PT for possible swing bed discuss case with daughter there is still deciding if they're able to care for him at home or to pursue shelter placement no change in other meds
[2017-04-23] MEDS: TAMSULOSIN 0.4 MG CAPSULE PO SCH (21:57)
[2017-04-24] MEDS: LEVOTHYROXINE 112 MCG TABLET PO SCH (06:10)
[2017-04-24] MEDS: MAGNESIUM OXIDE 400 MG TABLET PO SCH (06:23)
[2017-04-24 08:48] VITALS: BP 172/90; RESP 18; TEMP 98.1; O2SAT 94
[2017-04-24] MEDS: ENOXAPARIN SODIUM 40 MG/0.4 ML SYRINGE SUBCUT SCH (09:51)
[2017-04-24] MEDS: OSELTAMIVIR PHOSPHATE 75 MG CAPSULE PO SCH (09:51)
[2017-04-24] MEDS: LISINOPRIL 10 MG TABLET PO SCH (09:51)
[2017-04-24] MEDS: ASPIRIN 325 MG TABLET PO SCH (09:51)
--- NOTE | 2017-04-24 12:38 | DCSUMMARY ---
Hospitalization Summary Hospital Course: Final Discharge Diagnosis: Current Visit Problems Problem Status Onset Code Altered mental status Resolved R41.82 Weakness Acute R53.1 Elevated troponin Acute R74.8 Dementia Acute F03.90 Influenza B Acute J10.1 Benign prostatic hyperplasia Chronic Type 2 diabetes mellitus Chronic Hypothyroidism (acquired) Chronic 06/28/12 E03.9 Hyperlipidemia Chronic 06/28/12 E78.5 Benign hypertension Chronic 06/28/12 I10 Diagnostic Data, Laboratory Data, and Procedures of Signifigance: History and Physical pertinent to Admission: T Past Medical History Medical History: 1. BPH. 2. Hypercholesterolemia. 3. Hypertension. 4. Diabetes most 2. 5. Hypothyroidism. 6. History of colon polyps. 7. Shoulder problems, right side worse than left Surgical History: 1. History of appendectomy. 2. Hernia repair. 3. History of colonoscopy. Pertinent Family History: Significant for diabetes in siblings and parents. Past Social History: Smoked remotely over 40 years ago. Does not drink alcohol. [place] Has children that are described as healthy. reviewed form prior exams. one of his daugter's, not his POA, lives on the ranch with him. Tobacco Use: Never Smoker Course of Hospitalization: This very nice 82-year-old gentleman who suffered a fall at home and altered mental status and now very confused according to the daughters is unable to recall any current details of events he did have a slight fever in the ER and tested positive for influenza B he is positive for troponins we will check one last one he will probably need cardiac evaluation if the family agrees in the form of stress test. Most likely is not a candidate for any stent or catheterization considering his mental state is compliance with medication has been very poor and his appetite has also been very poor over the last months. He is done with his Tamiflu is daughters have decided that he needs to go to a penitentiary for placement since they cannot take care of him anymore but he would have to be fever free for 7 days before penitentiary can accept him I did discuss this with his daughters yesterday On the date of discharge, the patient was examined: Gen.: No acute distress, alert, nontoxic Heart: Regular rate and rhythm, no murmurs, clicks, gallops, or rubs Lungs: Clear to auscultation bilaterally, breathing is nonlabored Abdomen/GI: Normal tones on auscultation, soft, nontender, nondistended Musculoskeletal/extremities: No clubbing, cyanosis, or edema Vitals reviewed and are listed below Vital Signs (24 hrs) Temp Pulse Resp BP Pulse Ox 04/24/17 08:44 98.1 F 69 18 172/90 94 04/23/17 23:32 98.4 F 68 22 163/88 92 04/23/17 20:46 98.7 F 81 21 159/81 91 04/23/17 19:00 74 04/23/17 16:05 98.2 F 71 18 175/78 90 Assessment and Plan: 1. As per discharge assessments above 2. Disposition: Swing bed 3. Condition on discharge, stable and improved. 4. Diet: regular diet 5. Activities: resume normal activities 6. Follow-Up: 1. PCP 2. 7. Medications at the Time of Discharge: Home Medications 3 Medication Instructions Recorded Confirmed Type Aspirin 1 tab PO DAILY tab 11/08/15 04/20/17 History Potassium 1 tab PO QD tab 11/08/15 04/20/17 History lisinopril 10 mg tablet 10 mg PO QDAY #90 tab 11/13/16 04/20/17 Rx tamsulosin 0.4 mg capsule 0.4 mg PO DAILY #90 tab-cap 11/13/16 04/20/17 Rx glucosamine [id number] 1 tab PO QDAY tab 12/04/16 04/20/17 History yesica 1,500 mg-400 unit-100 mg tablet magnesium 200 mg tablet 200 mg PO QD tab 12/04/16 04/20/17 History polyethylene glycol 3350 17 17 g PO QDAY #765 g 12/04/16 04/20/17 Rx gram/dose oral powder levothyroxine 88 mcg tablet 88 mcg PO DAILY #90 tab 12/11/16 04/20/17 Rx 8. Time, care, counseling and coordination of care for this discharge is greater than 30 minutes. Exam - Vitals Vital Signs: Vital Signs Temperature 98.1 F Temperature Source Oral Pulse Rate [Pulse Oximeter] 69 Pulse Rate 65 Respiratory Rate 18 Blood Pressure [Right Arm] 172/90 Blood Pressure [Left Arm] 133/70 Blood Pressure 155/85 Pulse Ox 94 Oxygen Delivery Method Room Air Height 6 ft Weight 158 lb 3.2 oz Patient Problems - Patient Problem List (1) Benign prostatic hyperplasia Current Visit: Yes Status: Chronic Qualifiers: Lower urinary tract symptom presence: symptoms present Lower urinary tract symptom detail: unspecified Qualified Code(s): N40.1 - Benign prostatic hyperplasia with lower urinary tract symptoms Category: Medical (2) Type 2 diabetes mellitus Current Visit: Yes Status: Chronic Qualifiers: Diabetes mellitus complication status: without complication Diabetes mellitus jail insulin use: without superintendent marine oil terminal use Qualified Code(s): E11.9 - Type 2 diabetes mellitus without complications Category: Medical (3) Benign hypertension Current Visit: Yes Status: Chronic Onset Date: 06/28/12 Code(s): I10 - Essential (primary) hypertension Category: Medical (4) Hyperlipidemia Current Visit: Yes Status: Chronic Onset Date: 06/28/12 Code(s): E78.5 - Hyperlipidemia, unspecified Qualifiers: Hyperlipidemia type: unspecified Qualified Code(s): E78.5 - Hyperlipidemia , unspecified Category: Medical (5) Hypothyroidism (acquired) Current Visit: Yes Status: Chronic Onset Date: 06/28/12 Code(s): E03.9 - Hypothyroidism, unspecified Category: Medical (6) Altered mental status Current Visit: Yes Status: Resolved Code(s): R41.82 - Altered mental status , unspecified Qualifiers: Altered mental status type: disorientation Qualified Code(s): R41.0 - Disorientation, unspecified Category: Medical (7) Dementia Current Visit: Yes Status: Acute Code(s): F03.90 - Unspecified dementia without behavioral disturbance Qualifiers: Dementia type: vascular dementia Dementia behavioral disturbance: without behavioral disturbance Qualified Code(s): F01.50 - Vascular dementia without behavioral disturbance Category: Medical (8) Influenza B Current Visit: Yes Status: Acute Code(s): J10.1 - Influenza due to other identified influenza virus with other respiratory manifestations Category: Medical
[2017-04-24 13:16] LABS: BASOPHILS # (AUTO) 0.03 10*3/UL; BASOPHILS % (AUTO) 0.5 % (0-1); EOSINOPHILS # (AUTO) 0.02 10*3/UL; EOSINOPHILS % (AUTO) 0.4 % (0-8); Hematocrit [HCT] 43.3 % (42.0-52.0); Hemoglobin [HGB] 14.7 g/dL (14.0-18.0); MEAN CORPUSCULAR HEMOGLOBIN 30.4 PG (27-31); MEAN CORPUSCULAR HGB CONC 33.9 g/dL (33-37); MEAN CORPUSCULAR VOLUME 89.6 FL (80-90); MONOCYTES # (AUTO) 0.67 10*3/UL (0.3-0.8); MONOCYTES % (AUTO) 12.3 % (5-15); NEUTROPHILS # (AUTO) 2.93 10*3/UL; NEUTROPHILS % (AUTO) 53.6 % (50-80); RED BLOOD COUNT 4.83 10^6/uL (4.70-6.10)
--- NOTE | 2017-04-24 13:20 | PT.PROG ---
Progress Note Progress Note: S. Patient agreed to do exercise this morning. O. Patient performed seated exercises in the form of; long arc quads, heel toe raises, marches, pillow squeezes, clam shells all x 10 bilaterally. Patient was left in chair with floor and chair alarm and call light. A. Patient tolerated exercise well, he is very confused and requires frequent verbal cues to stay on task. Patient would continue to benefit from skilled therapy to increase strength and mobility. P. Continue POC.
[2017-04-24 13:27] LABS: BLOOD UREA NITROGEN 18 mg/dL (7-22); SERUM ALBUMIN 3.9 g/dL (3.5-4.8)
[2017-04-24 13:35] LABS: PLATELET MORPHOLOGY COMMENT NORMAL MORPHOLOGY (NORM); RBC MORPHOLOGY COMMENT NORMAL MORPHOLOGY (NORM); WBC MORPHOLOGY COMMENT NORMAL MORPHOLOGY (NORM)
--- NOTE | 2017-04-24 15:06 | PTI REPORT ---
Thank you for the referral of Balaji Mcclure. He was seen on 04/23/17 for an inpatient evaluation secondary to generalized weakness. SUBJECTIVE: The patient is an 82-year-old male who presented to the hospital after having a fall at home. The patient reports that he does not remember much about the fall and states that his fall was in late May and he has had a few falls recently. The patient also does have influenza. He has been on medications since at the hospital. He states that he is feeling pretty good but complains of some pain on the left side in his ribs. The patient does have a history of Alzheimer's and cognitive impairment. The patient is a very poor historian secondary to his cognitive impairment. He did undergo cognitive testing a few days ago with our occupational therapist and scored within the SEVERE cognitive impairment range, requiring 24-hour care. The patient is unable to recall exactly where he lives, but he does remember that his daughter does live with him right now and she is the primary android ios developer for him. He states he did not use any kind of walker or cane before his admittance to the hospital. Other than that, the patient is very confused and wondering why he can't get up on his own. PAST MEDICAL HISTORY: Past medical history can be found in the patient's medical record. OBJECTIVE FINDINGS: General observations: The patient was alert upon the therapist's arrival; although the patient was fairly confused and only able to follow simple 1-2 step commands. The patient was trying to get out of his chair on his own. He did have the floor mat and chair alarm set. The patient is a little irritated that he can't just get up by himself. Range of motion/Strength: Manual muscle testing of bilateral upper extremities reveals very poor motion and strength in his bilateral shoulders as he is only able to elevate approximately 60 degrees. The patient states he has hurt both shoulders previously. The patient demonstrates good elbow, wrist, and hand strength. Bilateral lower extremity strength is 4/5 upon seated manual muscle testing. Transfers: The patient was able to perform sit to stand transfer with verbal cueing and contact guard assist x1. When the patient stands up he has a tendency to push posteriorly onto his heels and push back into the surface such as the chair. Even with the chair locked, he was scooting the chair away. The patient will be a HIGH fall risk getting in and out of chairs. Ambulation: The patient was able to take a couple of steps forward with hand hold assist x1 for safety. Once again, ambulating with just the heel strike pattern and his weight posteriorly shifted. He was able to ambulate to the bathroom. Activities of daily living: The patient was able to independently perform toileting activity. He did require assistance for the sit to stand part and contact guard assist x1 when donning and doffing his brief and pants. Balance: We performed standing static balance x1 minute. The patient required verbal cueing to try to shift his weight anteriorly as he would just rock back on his heels. Without assistance he would have fallen backward. The patient has a very difficult time trying to weight shift and remains back on his heels. ASSESSMENT: The patient has fair to poor rehab potential secondary to his cognition. Problem List: Decreased endurance/strength secondary to recent illness Patient is a HIGH fall risk Short-Term Goals: To be met by discharge from inpatient: Patient will be able to perform all transfers safely with contact guard to stand by assist x1 for safety. Patient will be able to ambulate at least 100 feet, most likely with hand hold assist as he won't be able to cognitively remember how to use an assistive device. Patient will be able to tolerate 30 minutes of physical therapy activity to improve his endurance and mobility. Long-Term Goals: To be met following discharge from inpatient: After discussion with manager managed care, it sounds like the patient's family is deciding exactly where he will go since he does require 24-hour care and he is a HIGH fall risk. They are possibly looking into a care center type setting. TREATMENT PLAN: Patient will be seen B.I.D during the week and one time per day over the weekend as an inpatient to address the above goals and objectives. INITIAL TREATMENT: Treatment today consisted of the initial evaluation and one unit of functional activity. The patient was instructed in sit to stand transfers from his recliner x5. He was able to perform the activity. He did require verbal prompting for attention to task. with each stand, he was always posteriorly pushing on the chair with the back of his calves and not able to stand up unsupported without the chair behind him. It did require 50 seconds for the patient to complete the activity. The patient was left in chair with chair alarm on and the floor mat alarm on. The patient was instructed to call nursing any time he needed to get up. GINA
== END 2017-04-24 12:31 | disposition home or self-care (01) | DRG 948 ==
LOC: ER 07:12 → MED/SURG 09:46
PROVIDERS: ADMIT Family Medicine; ATTEND Family Medicine